=== PATIENT | female | born 1975 | race Caucasian/White ===

== ENCOUNTER 2017-09-04 14:19 | Emergency (ER) | payer BC ==
[~2017-09-04] VITALS: Ht 167.6 cm; Wt 86.0 kg
[~2017-09-04 14:19] MED LIST: ASPI81TA28 PO; LORA-741 PO
[2017-09-04 14:23] VITALS: TEMP 36.5; Ht 167.6 cm; Wt 86.0 kg
[2017-09-04] MEDS ORDERED: DiphenhydrAMINE HCL 50 MG/ML VIAL IV STA (15:44)
[2017-09-04] MEDS ORDERED: SODIUM CHLORIDE 0.9% 1000ML 1,000 ML IV STA (15:44)
[2017-09-04] MEDS ORDERED: KETOROLAC TROMETHAMINE 30 MG/ML VIAL IV STA (15:44)
[2017-09-04] MEDS ORDERED: PROCHLORPERAZINE 5 MG/ML 2 ML VIAL IV STA (15:44)
--- NOTE | 2017-09-04 15:57 | EMERGENCY ROOM VISIT NOTE ---
History Report prepared by Malcolm: Claudio Vallejo Under the Supervision of: Dr. Sabina Valentino D.O. First contact with patient: 15:35 Chief Complaint: HEADACHE Stated Complaint: 3 MIGRAINES IN A ROW History of Present Illness The patient is a 41 year old female who presents to the Emergency Room with complaints of a persistent migraine starting around 1030 this morning. The patient states that it started with an aura and then got a migraine, and she states that she took some ibuprofen which did not help. She then states that she got two more migraines on top of this original headache. She notes that she has been having tingling in her lips and her arm, and the light worsens the headache. She states that her headache is in the front of her head, and this is typical of her migraines. She states that she has a history of migraines, though she states that she usually only gets them once every six months, so this frequency is uncommon for her, and she has never had arm tingling before. She notes that she recently had a Mirena put in, though she has had it before with no problems. She denies any family history of migraines. She states that she has multiple triggers for her migraines including caffeine and seafood. Source of History: patient Onset: 1030 this morning Position: head Quality: ache Timing: other (persistent) Modifying Factors (Worsening): other (light) Note: Associated symptoms: Tingling in her lips and arm Review of Systems See HPI for pertinent positives & negatives. A total of 10 systems reviewed and were otherwise negative. Past Medical & Surgical Medical Problems: (1) Acute bronchitis (2) Anxiety (3) Anxiety (4) Migraine Social History Smoking Status: Never Smoker Alcohol Use: none Drug Use: none Housing Status: lives with family Occupation Status: employed Current/Historical Medications Scheduled Levonorgestrel (Iud) (Mirena), 20 MCG INT UTER UD Scheduled PRN Lorazepam (Lorazepam), 0.5 MG PO BID PRN for Anxiety Sumatriptan Succinate (Imitrex), 50 MG PO UD PRN for Migraine Allergies Coded Allergies: Sulfamethoxazole w/Trimethoprim (Verified Allergy, Intermediate, Flushing , 09/04/17) Latex1 -Allergic Contact Dermititis (Unverified Allergy, Mild, LATEX GLOVES MAKE SKIN BREAK OUT, 07/18/15) Albuterol (Verified Adverse Reaction, Intermediate, hyperventilate, 07/18/15 ) Iodine (Unverified Adverse Reaction, Unknown, MIGRANES, 09/04/17) Physical Exam Vital Signs Date Time Temp Pulse Resp B/P (MAP) Pulse Ox O2 Delivery O2 Flow Rate FiO2 09/04/17 17:10 82 18 108/84 98 09/04/17 16:02 67 105/58 100 Room Air 09/04/17 14:23 36.5 64 16 119/77 99 Physical Exam GENERAL: alert, well appearing, well nourished, no distress, non-toxic. Patient is in darkened room due to light sensitivity with migraine. EYE EXAM: normal conjunctiva, PERRL and EOM's grossly intact OROPHARYNX: no exudate, no erythema, lips, buccal mucosa, and tongue normal and mucous membranes are moist NECK: supple, no nuchal rigidity, no adenopathy, non-tender LUNGS: Clear to auscultation. Normal chest wall mechanics HEART: no murmurs, S1 normal and S2 normal ABDOMEN: abdomen soft, non-tender, normo-active bowel sounds, no masses, no rebound or guarding. BACK: Back is symmetrical on inspection and there is no deformity, no midline tenderness, no CVA tenderness. SKIN: no rashes and no bruising UPPER EXTREMITIES: upper extremities are grossly normal. LOWER EXTREMITIES: No pitting edema. NEURO EXAM: Normal sensorium, cranial nerves II-XII grossly intact, normal speech, no gross weakness of arms, no gross weakness of legs. Medical Decision & Procedures ER Provider Diagnostic Interpretation: Radiology results have been interpreted by the radiologist and reviewed by me. ANGIOGRAPHY HEAD COMBO HISTORY: Headache mental status change TECHNIQUE: Multiaxial CT images of the head were performed both before and after the intravenous administration of contrast to evaluate the major cerebral vessels. Maximum intensity projection images were also obtained. A dose lowering technique was utilized adhering to the principles of ALARA. COMPARISON: None. FINDINGS: There is no mass, hematoma, midline shift, or acute infarct. Visualized intracranial internal carotid arteries, distal vertebral arteries, and basilar artery are widely patent. There is no significant stenosis, occlusion, or aneurysm seen within the bilateral ACAs, MCAs, or farm assistant. Potential focal ectasia mid right middle cerebral artery transaxial image 114 is due to vascular tortuosity rather than aneurysm. IMPRESSION: No significant stenosis, occlusion, or aneurysm within the [place] of [place]. Negative CT of the brain. Note is made of moderate mucosal thickening of the ethmoid and maxillary sinuses. The above report was generated using voice recognition software. It may contain grammatical, syntax or spelling errors. Electronically signed by: Ebenezer Palm M.D. 09/04/2017 4:31 PM Dictated Date/Time: 09/04/2017 4:26 PM Laboratory Results Test 09/04/17 16:00 Bedside Hemoglobin 11.6 g/dl (12.0-16.0) Bedside Hematocrit 34 % (37-47) Bedside Sodium 140 mEq/L (135-144) Bedside Potassium 3.8 mEq/L (3.3-5.0) Bedside Chloride 102 mEq/L (101-112) Bedside Total CO2 24 mEq/l (24-31) Anion Gap 19.0 mmol/L (16-25) Bedside Blood Urea Nitrogen 5 mg/dl (7-18) Bedside Creatinine 0.6 mg/dl (0.6-1.3) Bedside Glucose (other) 102 mg/dl (70-99) Bedside Ionized Calcium (Juanita) 1.13 mmol/l (1.12-1.32) Laboratory results per my review. Medications Administered Medications (Trade) Dose Ordered Sig/Bradley Route Start Time Stop Time Status Last Admin Dose Admin Sodium Chloride 1,000 ml @ 999 mls/hr Q1H1M STAT IV 09/04/17 15:44 09/04/17 16:44 DC 09/04/17 15:58 999 MLS/HR Ketorolac Tromethamine (Toradol Inj) 30 mg NOW STAT IV 09/04/17 15:44 09/04/17 15:47 DC 09/04/17 15:58 30 MG Prochlorperazine Edisylate (Compazine Inj) 5 mg NOW STAT IV 09/04/17 15:44 09/04/17 15:47 DC 09/04/17 15:58 5 MG Diphenhydramine HCl (Benadryl Inj) 12.5 mg NOW STAT IV 09/04/17 15:44 09/04/17 15:47 DC 09/04/17 15:58 12.5 MG ED Course 1535: The patient was evaluated in room C1. A complete history and physical exam was performed. 1544: Benadryl 12.5mg IV, Compazine 5mg IV, Toradol 30mg IV, Sodium Chloride 1000 ml @ 999 mls/hr IV 1637: Upon reevaluation, the patient is feeling better, but the pain has not completely resolved. I discussed the findings and the treatment plan with the patient. She verbalizes agreement and understanding. She was discharged home. Medical Decision Differential diagnosis: Etiologies such as migraine headache, meningitis, sinusitis, CO exposure, ICH, SAH, infection, tumor, headache, sinus thrombosis, arterial dissection, as well as others were entertained. Pt with hx of migraines and atypical migraine frequency/duration/symptoms today. CT reassuring. Pt improved with standard migraine meds. Offered additional treatment, pt declined and wanted to be discharged. 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 Discussed with pt symptoms to watch/return for, she was tolerating po, ambulating with a steady gait and well appearing at DC. She verbalized understanding of all results and plan. Headache not the worse of her life and no symptoms to suggest infectious etiology, did not feel pt warranted LP at this time. Medication Reconcilliation Current Medication List: was personally reviewed by me Blood Pressure Screening Patient's blood pressure: Normal blood pressure Impression Primary Impression: Headache Additional Impression: Migraine Scribe Attestation The scribe's documentation has been prepared under my direction and personally reviewed by me in its entirety. I confirm that the note above accurately reflects all work, treatment, procedures, and medical decision making performed by me. Departure Information Dispostion Home / Self-Care Referrals Yuliya Guerra C.R.N.P. (PCP) Forms HOME CARE DOCUMENTATION FORM, IMPORTANT VISIT INFORMATION Patient Instructions [facility] Additional Instructions Please avoid any potential triggers for your headaches. Please make sure you' re drinking plenty of water. You may continue using [id number] medications to up with your headaches as required. If you continue to have more frequent or atypical migraines, please consider discussing this with your family doctor. If you have worsening headache, vision changes, dizziness, fevers, vomiting, increased numbness or tingling, or unable to walk, or you've any other new concerns, please return the emergency room. Problem Qualifiers Primary Impression: Headache Headache type: unspecified Headache chronicity pattern: acute headache Intractability: not intractable Qualified Codes: R51 - Headache Additional Impression: Migraine Migraine type: with aura Status migrainosus presence: without status migrainosus Intractability: not intractable Qualified Codes: G43.109 - Migraine with aura, not intractable, without status migrainosus
[2017-09-04] MEDS ORDERED: OPTIRAY 320 IV PRN (16:00)
[2017-09-04 16:11] LABS: ISTAT CREATININE 0.6 mg/dl (0.6-1.3); ISTAT IONIZED CALCIUM 1.13 mmol/l (1.12-1.32); ISTAT POTASSIUM 3.8 mEq/L (3.3-5.0)
--- NOTE | 2017-09-04 16:32 | DIAGNOSTIC IMAGING REPORT ---
ANGIOGRAPHY HEAD COMBO HISTORY: Headache mental status change TECHNIQUE: Multiaxial CT images of the head were performed both before and after the intravenous administration of contrast to evaluate the major cerebral vessels. Maximum intensity projection images were also obtained. A dose lowering technique was utilized adhering to the principles of ALARA. COMPARISON: None. FINDINGS: There is no mass, hematoma, midline shift, or acute infarct. Visualized intracranial internal carotid arteries, distal vertebral arteries, and basilar artery are widely patent. There is no significant stenosis, occlusion, or aneurysm seen within the bilateral ACAs, MCAs, or escalator constructor. Potential focal ectasia mid right middle cerebral artery transaxial image 114 is due to vascular tortuosity rather than aneurysm. IMPRESSION: No significant stenosis, occlusion, or aneurysm within the [place] of [place]. Negative CT of the brain. Note is made of moderate mucosal thickening of the ethmoid and maxillary sinuses. The above report was generated using voice recognition software. It may contain grammatical, syntax or spelling errors. Electronically signed by: Ebenezer Palm M.D. 09/04/2017 4:31 PM Dictated Date/Time: 09/04/2017 4:26 PM
[2017-09-04] MEDS ORDERED: ATV5X PO (16:39)
[2017-09-04] MEDS ORDERED: LEVO1IUD2 INT UTER (16:39)
[2017-09-04] MEDS ORDERED: SUMA50TA15 PO (16:46)
[2017-09-04 17:10] VITALS: BP 108/84; PULSE 82; O2SAT 98
== END 2017-09-04 17:12 | disposition home or self-care (01) ==
LOC: C.EDB 14:20 → C.EDC 17:12
DX: R51 Headache (principal); G43.109 Migraine with aura, not intractable, without status migrainosus; Z88.8 Allergy status to other drugs, medicaments and biological substances

== ENCOUNTER 2022-03-28 11:02 | Inpatient (IN) ==
[2022-03-28] MEDS ORDERED: HYDROmorphone INJ 1 MG/ML SYRINGE IV STA ×2 (12:39→18:54)
[2022-03-28] MEDS ORDERED: SODIUM CHLORIDE 0.9% 500 ML IV ONE (12:39)
[2022-03-28] MEDS ORDERED: ONDANSETRON INJ 2 MG/ML 2 ML VIAL IV STA ×2 (12:40→17:00)
--- NOTE | 2022-03-28 12:49 | Emergency Department Note ---
Impression & Plan Post surgical complication Admit to surgery ED Provider Note NAME: TEAGAN AGUILAR AGE: 46 SEX: F ARRIVES VIA: Ambulance INFORMANT: Patient ED PROVIDER(S): Avril Luciano DO CHIEF COMPLAINT: Right upper quadrant abdominal pain and vomiting PLAN: Disposition: Admit to surgery Condition: Guarded MEDICAL DECISION MAKING: This is a 46-year female patient who had a cholecystectomy [address] Cheatham. The patient now has severe right upper quadrant abdominal pain and vomiting. There is no obvious leukocytosis. The patient is afebrile but has severe right upper quadrant abdominal pain. CT scan of the abdomen/pelvis shows a 40 mm fluid collection in the right upper quadrant concerning for possible abscess formation. I also considered the possibility of a bile leak given that the patient was afebrile with no leukocytosis. I discussed the case with the [facility] surgery service and they will evaluate for further management. The patient required IV analgesia/IV antiemetics and was started on IV fluids and kept NPO. Triage Nursing notes reviewed and agree with them. Vital Signs: reviewed and unremarkable Differential diagnosis: Postsurgical wound infection Bowel leak Perforated viscus Bowel obstruction ER treatment provided: IV normal saline IV Zofran IV Dilaudid Diagnostics interpreted by me: ECG: Normal sinus rhythm at a rate of [address] segment ovation or signs of ischemia. There is no ectopy. Cardiac Monitoring: Normal sinus rhythm at 68 Laboratory studies: See below Imaging studies: As per radiology CT scan of the abdomen/pelvis: See Report HPI: 46/F arrives for evaluation of right upper quadrant abdominal pain. Patient underwent cholecystectomy [address] Cheatham at the surgical center for [facility]. She did not feel very well over the past 2 days but has suddenly developed severe right upper quadrant abdominal pain in the past couple of hours with significant nausea and vomiting. She denies fever or chills. ROS: See above HPI for pertinent positives & negatives. A total of 10 systems reviewed and were otherwise negative. PAST MEDICAL HISTORY:Anxiety; bronchitis PAST SURGICAL HISTORY:See Below FAMILY HISTORY:See Below SOCIAL HISTORY:See Below HOME MEDICATIONS:See list ALLERGIES:See list VITALS:See Below PHYSICAL EXAMINATION: HEENT: Head - normocephalic and atraumatic. Pupils are equal, round, and reactive to light. Extraocular eye muscles are intact, and sclera are anicteric. Nose - moist nasal mucosa without discharge. Mouth - moist buccal mucosa. Oropharynx is nonerythematous and there is no tonsillar exudate or edema noted. Neck: Supple; no cervical lymphadenopathy noted Heart: Regular rate and rhythm. There is a normal S1 and S2 with no murmurs, clicks, or gallops appreciated. Lungs: Clear to auscultation bilaterally with no wheezes, rales, or rhonchi. Abdomen: Soft, exquisitely tender to palpation in the right upper quadrant of the abdomen. Surgical incisions appear well-healing with Steri-Strips in Dermabond in place. Tthere are no palpable pulsatile masses or hepatosplenomegaly. There is no guarding, rigidity, or rebound noted. Extremities: No evidence of cyanosis, clubbing, or edema. There are easily palpable peripheral pulses. Skin: warm and dry with good turgor and no rashes. ED COURSE: Times/Reassessments: 1225: The patient was evaluated in room B 10. A complete history and physical was performed. A twelve-lead EKG was obtained as described above. An order was placed for continuous cardiac monitoring. The patient was in a normal sinus rhythm at a rate of 68. An IV lock was initiated and labs are drawn as above. The patient was medicated with IV Dilaudid and IV Zofran. She was started on a normal saline bolus. She will go for CT scan of the abdomen/pelvis. The patient was reevaluated and was more comfortable. I reviewed the results of the CT scan with the patient. I discussed the case with Heena Manuel PA-C. Avril Luciano DO Past Med/Surg History Medical History Acute bronchitis Anxiety Cholecystitis Headache Social History Smoking Status: Never smoker Preferred Language: Congolese Feels Safe at Home: Yes Allergies Allergies Allergy/AdvReac Type Severity Reaction Status Date / Time sulfamethoxazole [Bactrim] Allergy Intermediate Flushing Verified 03/19/22 20:56 trimethoprim [Bactrim] Allergy Intermediate Flushing Verified 03/19/22 20:56 latex Allergy Mild LATEX Verified 03/19/22 20:56 GLOVES MAKE SKIN BREAK OUT albuterol AdvReac Intermediate hyperventil Verified 03/19/22 20:56 ate iodine AdvReac Intermediate MIGRANES Verified 03/19/22 20:56 Home Meds Home Medications Medication Instructions Recorded Confirmed sertraline 100 mg tablet 100 mg PO HS 02/13/21 03/19/22 calcium carbonate 600 mg-vitamin 1 tab PO HS 03/19/22 03/19/22 D3 10 mcg (400 unit) tablet (Calcium 600 + D(3)) clobetasol 0.05 % topical ointment 1 applic topical DIRECTED PRN 03/19/22 03/19/22 FLARE UPS ferrous sulfate 325 mg (65 mg 325 mg PO HS 03/19/22 03/19/22 iron) tablet (iron) fluticasone 250 mcg-salmeterol 50 1 inh inhalation DIRECTED PRN 03/19/22 03/19/22 mcg/dose blistr powdr for Wheezing inhalation Previous Rx's Medication Instructions Recorded ondansetron HCl 4 mg tablet 4 mg PO Q8H PRN nausea and 03/19/22 vomiting #15 tabs oxycodone 5 mg tablet 5 mg PO Q6H PRN pain #15 tabs 03/19/22 Results & Data (ED) Vital Signs Vital Signs - 24 hr 03/28/22 11:16 03/28/22 11:30 03/28/22 12:00 Temperature 36.6 C Temperature Source Oral Pulse Rate 69 64 68 Pulse Rate [Right Finger] Pulse Rate from SpO2 Sensor 65 68 Pulse Rhythm Regular Pulse Rhythm [Right Finger] Pulse Strength Normal Pulse Strength [Right Finger] Respiratory Rate 16 Respiratory Effort / Characteristics Non-Labored Spontaneous Respiratory Depth Normal Respiratory Pattern Blood Pressure 129/55 L Blood Pressure [Right Arm] Blood Pressure Mean 79 Blood Pressure Mean [Right Arm] Pulse Oximetry 94 95 94 Oxygen Delivery Method Room Air Sepsis Recent Fever Within 48 Hours No Sepsis New/Unexplained Change in Mental Status No Sepsis Action Taken by Nursing No Action Required 03/28/22 12:43 03/28/22 14:00 03/28/22 15:00 Temperature Temperature Source Pulse Rate 65 Pulse Rate [Right Finger] Pulse Rate from SpO2 Sensor 64 68 63 Pulse Rhythm Pulse Rhythm [Right Finger] Pulse Strength Pulse Strength [Right Finger] Respiratory Rate 22 Respiratory Effort / Characteristics Respiratory Depth Respiratory Pattern Blood Pressure 140/81 111/75 119/74 Blood Pressure [Right Arm] Blood Pressure Mean 100 87 89 Blood Pressure Mean [Right Arm] Pulse Oximetry 95 95 95 Oxygen Delivery Method Sepsis Recent Fever Within 48 Hours Sepsis New/Unexplained Change in Mental Status Sepsis Action Taken by Nursing 03/28/22 15:30 03/28/22 17:00 03/28/22 18:26 Temperature Temperature Source Pulse Rate Pulse Rate [Right Finger] 65 Pulse Rate from SpO2 Sensor 64 61 Pulse Rhythm Pulse Rhythm [Right Finger] Regular Pulse Strength Pulse Strength [Right Finger] Normal Respiratory Rate 16 Respiratory Effort / Characteristics Non-Labored Spontaneous Respiratory Depth Normal Respiratory Pattern Regular Blood Pressure 135/77 126/75 Blood Pressure [Right Arm] 135/65 Blood Pressure Mean 96 92 Blood Pressure Mean [Right Arm] 88 Pulse Oximetry 95 96 94 Oxygen Delivery Method Room Air Sepsis Recent Fever Within 48 Hours Sepsis New/Unexplained Change in Mental Status Sepsis Action Taken by Nursing 03/28/22 18:26 03/28/22 18:30 03/28/22 19:30 Temperature Temperature Source Pulse Rate 66 Pulse Rate [Right Finger] Pulse Rate from SpO2 Sensor 64 67 Pulse Rhythm Regular Pulse Rhythm [Right Finger] Pulse Strength Pulse Strength [Right Finger] Respiratory Rate 16 Respiratory Effort / Characteristics Respiratory Depth Respiratory Pattern Blood Pressure 138/72 117/77 Blood Pressure [Right Arm] Blood Pressure Mean 94 90 Blood Pressure Mean [Right Arm] Pulse Oximetry 94 95 93 Oxygen Delivery Method Room Air Room Air Sepsis Recent Fever Within 48 Hours Sepsis New/Unexplained Change in Mental Status Sepsis Action Taken by Nursing 03/28/22 20:00 03/28/22 20:31 Temperature Temperature Source Pulse Rate 68 Pulse Rate [Right Finger] Pulse Rate from SpO2 Sensor 74 67 Pulse Rhythm Pulse Rhythm [Right Finger] Pulse Strength Pulse Strength [Right Finger] Respiratory Rate 20 Respiratory Effort / Characteristics Respiratory Depth Respiratory Pattern Blood Pressure 123/84 123/84 Blood Pressure [Right Arm] Blood Pressure Mean 97 97 Blood Pressure Mean [Right Arm] Pulse Oximetry 94 94 Oxygen Delivery Method Room Air Room Air Sepsis Recent Fever Within 48 Hours Sepsis New/Unexplained Change in Mental Status Sepsis Action Taken by Nursing Laboratory Data Result diagrams: 03/28/22 11:20 03/28/22 11:20 Lab Results 03/28/22 03/28/22 03/28/22 Range/Units 11:20 11:20 15:29 WBC 4.34 L (4.8-10.8) K/ul RBC 4.51 (3.93-5.22) M/uL Hgb 13.9 (12.0-16.0) g/dl Hct 40.8 (34.1-44.9) % MCV 90.5 (80.0-100.0) fL MCH 30.8 (25.0-34.0) pg MCHC 34.1 (32.0-36.0) g/dL RDW Std Deviation 41.1 (36.4-46.3) fL RDW Coeff of Moira 12.4 (11.5-14.5) % Plt Count 277 (130-400) K/uL MPV 10.4 (9.4-12.3) fL Immature Gran % (Auto) 0.5 % Neut % (Auto) 68.1 % Lymph % (Auto) 16.6 % Lyman % (Auto) 10.6 % Eos % (Auto) 3.5 % Baso % (Auto) 0.7 % Neut # (Auto) 2.96 (1.4-6.5) K/uL Lymph # (Auto) 0.72 L (1.2-3.4) K/uL Lyman # (Auto) 0.46 (0.24-0.82) K/uL Eos # (Auto) 0.15 (0-0.50) K/uL Baso # (Auto) 0.03 (0-0.2) K/uL Immature Gran # (Auto) 0.02 (0.00-0.02) K/uL Sodium 137 (136-145) mmol/L Potassium 3.6 (3.5-5.1) mmol/L Chloride 104 (98-107) mmol/L Carbon Dioxide 26 (21-32) mmol/L Anion Gap 7 (3-11) BUN 6 (6-23) mg/dl Creatinine 0.47 L (0.6-1.2) mg/dl Est Cr Clr Drug Dosing 172.1 ml/min Est GFR ( Amer) 137.3 ml/min Est GFR (Non-Af Amer) 118.5 ml/min BUN/Creatinine Ratio 12.8 (10-20) Glucose 105 H (70-99(Fasting)) mg/dl Calcium 8.6 (8.5-10.1) mg/dl Total Bilirubin 2.7 H (0.2-1.0) mg/dl AST 382 H (13-39) U/L ALT 631 H (7-52) U/L Alkaline Phosphatase 325 H (34-104) U/L Total Protein 6.4 (6.0-8.3) gm/dl Albumin 3.8 (3.4-5.0) gm/dl Globulin 2.6 (2.5-4.0) gm/dl Albumin/Globulin Ratio 1.5 (0.9-2) Lipase 16 (11-82) U/L Urine Color Dark Yellow Urine Appearance Clear (Clear) Urine pH 5.5 (4.5-7.5) Ur Specific [place] > 1.060 H (1.000-1.030) Urine Protein Trace H (Negative) Urine Glucose (UA) Negative (Negative) Urine Ketones 2+ H (Negative) Urine Blood Trace H (Negative) Urine Nitrite Negative (Negative) Urine Bilirubin 1+ H (Negative) Urine Urobilinogen Positive H (Negative) Ur Leukocyte Esterase Negative (Negative) Urine WBC (Auto) 1-5 (0-5) /hpf Urine RBC (Auto) 0-4 (0-4) /hpf U Hyaline Cast (Auto) 10-30 H (0-5) /lpf U Epithel Cells (Auto) >30 H (0-5) /lpf Urine Bacteria (Auto) Negative (Negative) SARS-CoV-2, RNA, NAAT (NEGATIVE) 03/28/22 Range/Units 18:33 WBC (4.8-10.8) K/ul RBC (3.93-5.22) M/uL Hgb (12.0-16.0) g/dl Hct (34.1-44.9) % MCV (80.0-100.0) fL MCH (25.0-34.0) pg MCHC (32.0-36.0) g/dL RDW Std Deviation (36.4-46.3) fL RDW Coeff of Moira (11.5-14.5) % Plt Count (130-400) K/uL MPV (9.4-12.3) fL Immature Gran % (Auto) % Neut % (Auto) % Lymph % (Auto) % Lyman % (Auto) % Eos % (Auto) % Baso % (Auto) % Neut # (Auto) (1.4-6.5) K/uL Lymph # (Auto) (1.2-3.4) K/uL Lyman # (Auto) (0.24-0.82) K/uL Eos # (Auto) (0-0.50) K/uL Baso # (Auto) (0-0.2) K/uL Immature Gran # (Auto) (0.00-0.02) K/uL Sodium (136-145) mmol/L Potassium (3.5-5.1) mmol/L Chloride (98-107) mmol/L Carbon Dioxide (21-32) mmol/L Anion Gap (3-11) BUN (6-23) mg/dl Creatinine (0.6-1.2) mg/dl Est Cr Clr Drug Dosing ml/min Est GFR ( Amer) ml/min Est GFR (Non-Af Amer) ml/min BUN/Creatinine Ratio (10-20) Glucose (70-99(Fasting)) mg/dl Calcium (8.5-10.1) mg/dl Total Bilirubin (0.2-1.0) mg/dl AST (13-39) U/L ALT (7-52) U/L Alkaline Phosphatase (34-104) U/L Total Protein (6.0-8.3) gm/dl Albumin (3.4-5.0) gm/dl Globulin (2.5-4.0) gm/dl Albumin/Globulin Ratio (0.9-2) Lipase (11-82) U/L Urine Color Urine Appearance (Clear) Urine pH (4.5-7.5) Ur Specific [place] (1.000-1.030) Urine Protein (Negative) Urine Glucose (UA) (Negative) Urine Ketones (Negative) Urine Blood (Negative) Urine Nitrite (Negative) Urine Bilirubin (Negative) Urine Urobilinogen (Negative) Ur Leukocyte Esterase (Negative) Urine WBC (Auto) (0-5) /hpf Urine RBC (Auto) (0-4) /hpf U Hyaline Cast (Auto) (0-5) /lpf U Epithel Cells (Auto) (0-5) /lpf Urine Bacteria (Auto) (Negative) SARS-CoV-2, RNA, NAAT NEGATIVE (NEGATIVE) Administered Medications Sodium Chloride (Nss) 500 mls @ 125 mls/hr IV .Q4H ANASTASIA Stop: 04/27/22 15:59 Last Admin: 03/28/22 20:29 Dose: 125 mls/hr Documented By: HUBERT Discontinued Medications Hydromorphone HCl (Hydromorphone Inj 1 Mg/Ml Syringe) 1 mg IV NOW STA Stop: 03/28/22 12:40 Last Admin: 03/28/22 12:44 Dose: 1 mg Documented By: SMITHA Hydromorphone HCl (Hydromorphone Inj 1 Mg/Ml Syringe) 1 mg IV NOW STA Stop: 03/28/22 18:55 Last Admin: 03/28/22 18:57 Dose: 1 mg Documented By: SMITHA Sodium Chloride (Nss) 500 mls @ 999 mls/hr IV .Q31M ONE Stop: 03/28/22 13:09 Last Infusion: 03/28/22 13:44 Dose: 0 mls/hr Documented By: Admin: 03/28/22 12:45 Dose: 999 mls/hr Documented By: SMITHA Ioversol (Optiray 300 100ml) 94 ml IV ONCE ONE Stop: 03/28/22 13:38 Last Admin: 03/28/22 13:37 Dose: 94 ml Documented By: ANNA Ondansetron HCl (Ondansetron Inj 2 Mg/Ml 2 Ml Vial) 4 mg IV NOW STA Stop: 03/28/22 12:41 Last Admin: 03/28/22 12:44 Dose: 4 mg Documented By: SMITHA Ondansetron HCl (Ondansetron Inj 2 Mg/Ml 2 Ml Vial) 4 mg IV NOW STA Stop: 03/28/22 17:01 Last Admin: 03/28/22 17:15 Dose: 4 mg Documented By: SMITHA Imaging Data Radiologist's Impression: Abdomen/Pelvis CT 03/28/22 12:37 CT abd pelvis IV con only CLINICAL HISTORY: s/p choley; severe pain TECHNIQUE: Helical axial images of the abdomen and pelvis were obtained and displayed. Automated dose lowering techniques and/or adjustment according to patient size were utilized for this exam. This exam was performed with intravenous contrast. CT DOSE: 629.20 mGy.cm COMPARISON: Comparison is made to CT abdomen pelvis 11/24/2010 and gallbladder ultrasound 03/19/2022 FINDINGS: Lower chest: Bibasilar atelectasis versus scarring is seen. Liver: Unremarkable. No focal lesions are seen. Gallbladder and biliary tree: Patient is status post cholecystectomy. Physiologic prominence of the biliary ducts is noted. Pancreas: Unremarkable, no focal lesions. Spleen: Unremarkable. Adrenals: Unremarkable. Kidneys and ureters: Unremarkable. Bladder: Unremarkable. Reproductive organs: Unremarkable. Bowel: Unremarkable appearance of the bowel. The appendix is normal. There is mild fat stranding about the hepatic flexure. Lymph nodes Retroperitoneal: Unremarkable. Pelvic: Unremarkable. Mesenteric: Unremarkable. Peritoneum: There is a gas and fluid collection in the right upper quadrant measuring approximately 40 mm in diameter. Surrounding soft tissue stranding is seen. No eric pneumoperitoneum is seen. Vessels: Unremarkable. Abdominal wall: Unremarkable. Bones: Degenerative changes in the visualized spine. IMPRESSION: 1. There is a gas and fluid collection in the right upper quadrant with associated soft tissue stranding. Findings are concerning for developing abscess in this patient status post recent cholecystectomy. Fat stranding of the hepatic flexure likely reflects reactive changes. 2. Additional findings as above. ACT 112: Negative or not required by law. Electronically signed by: Josue Peñaloza M.D. 03/28/2022 2:17 PM Cholangiopancreatography MRI 03/28/22 16:30 MR MRCP CLINICAL HISTORY: RUQ pain, S/P lap ned TECHNIQUE: Multiplanar multisequence MR images of the abdomen were obtained, as per MRCP protocol. . COMPARISON: Comparison is made to CT abdomen pelvis 03/28/2022 FINDINGS: Lower chest: No acute abnormality Liver: Unremarkable. No focal lesions are seen. Gallbladder and biliary tree: Patient is status post cholecystectomy. There is prominent susceptibility artifact in the gallbladder fossa. Please see CT abdomen pelvis performed same day for findings of gas/fluid collection. The common bile duct measures 10 mm in diameter. Mild prominence of the intrahepatic bile ducts is seen. Pancreas: Unremarkable were visualized. Spleen: Tiny T2 hyperintensities may represent hemangioma. Adrenals: Unremarkable. Kidneys and ureters: Unremarkable. Bowel: Unremarkable. Lymph nodes Retroperitoneal: Unremarkable. Mesenteric: Unremarkable. Peritoneum: Normal Vessels: Unremarkable. Abdominal wall: Unremarkable. Bones: Unremarkable. IMPRESSION: Status post cholecystectomy. The common bile duct is prominent measuring 10 mm, this may be physiologic or reactive to surrounding inflammation. No choledocholithiasis is seen. Please see CT abdomen pelvis performed same day for findings of gas and fluid at the postsurgical site. ACT 112: Negative or not required by law. Electronically signed by: Josue Peñaloza M.D. 03/28/2022 6:26 PM Discharge Plan Visit Data Chief Complaint: Abdominal Pain Stated Complaint: AB PAIN ED Provider: Avril Luciano Discharge Problem: Post surgical complication Forms Stand Alone Forms: [facility] [place] [employer] Prescriptions Prescriptions: No Action fluticasone propion-salmeterol 250-50 mcg/dose blister with device 1 inh INHALATION DIRECTED PRN (Reason: Wheezing) ferrous sulfate [iron] 325 mg (65 mg iron) Tablet 325 mg PO HS clobetasol 0.05 % Ointment 1 applic TOPICAL DIRECTED PRN (Reason: FLARE UPS) calcium carbonate-vitamin D3 [Calcium 600 + D(3)] 600 mg-10 mcg (400 unit) Tablet 1 tab PO HS ondansetron HCl 4 mg tablet 4 mg PO Q8H PRN (Reason: nausea and vomiting) Qty: 15 0RF oxycodone 5 mg tablet 5 mg PO Q6H PRN (Reason: pain) Qty: 15 0RF sertraline 100 mg tablet 100 mg PO HS Referrals Referrals: Layne Le MD [Primary Care Provider] - : Post surgical complication Qualifiers: Surgical complication system/body Area: digestive system Surgical complication type: unspecified
[2022-03-28 12:54] LABS: Basophils # (auto) 0.03 K/uL (0-0.2); Basophils % (auto) 0.7 %; Eosinophils # (auto) 0.15 K/uL (0-0.50); Eosinophils % (auto) 3.5 %; Hematocrit (blood only) 40.8 % (34.1-44.9); Hemoglobin 13.9 g/dl (12.0-16.0); Immature Granulocytes # (auto) 0.02 K/uL (0.00-0.02); Immature Granulocytes % (auto) 0.5 %; Lymphocytes # (auto) 0.72 K/uL (1.2-3.4); Lymphocytes % (auto) 16.6 %; Mean Corpuscular Hemoglobin 30.8 pg (25.0-34.0); Mean Corpuscular Hgb Conc 34.1 g/dL (32.0-36.0); Mean Corpuscular Volume 90.5 fL (80.0-100.0); Mean Platelet Volume 10.4 fL (9.4-12.3); Monocytes # (auto) 0.46 K/uL (0.24-0.82); Monocytes % (auto) 10.6 %; Neutrophils # (auto) 2.96 K/uL (1.4-6.5); Neutrophils % (auto) 68.1 %; Platelet Count 277 K/uL (130-400); RDW Coefficient of Variation 12.4 % (11.5-14.5); RDW Standard Deviation 41.1 fL (36.4-46.3); Red Blood Count 4.51 M/uL (3.93-5.22); White Blood Count 4.34 K/ul (4.8-10.8)
[2022-03-28 13:02] LABS: BUN Creatinine Ratio 12.8 (10-20); Calcium 8.6 mg/dl (8.5-10.1); Creatinine Clr Calc Pharmacy 172.1 ml/min; Est GFR (African American) 137.3 ml/min; Est GFR (Non-African American) 118.5 ml/min; Potassium 3.6 mmol/L (3.5-5.1)
[2022-03-28 13:17] LABS: Albumin Globulin Ratio 1.5 (0.9-2); Albumin Level 3.8 gm/dl (3.4-5.0); Bilirubin,Total 2.7 mg/dl (0.2-1.0); Globulin 2.6 gm/dl (2.5-4.0); Total Protein 6.4 gm/dl (6.0-8.3)
[2022-03-28] MEDS ORDERED: OPTIRAY 300 100mL IV ONE (13:37)
--- NOTE | 2022-03-28 14:20 | CT Scan Report ---
CT abd pelvis IV con only CLINICAL HISTORY: s/p choley; severe pain TECHNIQUE: Helical axial images of the abdomen and pelvis were obtained and displayed. Automated dose lowering techniques and/or adjustment according to patient size were utilized for this exam. This e xam was performed with intravenous contrast. CT DOSE: 629.20 mGy.cm COMPARISON: Comparison is made to CT abdomen pelvis 11/24/2010 and gallbladder ultrasound 03/19/2022 FINDINGS: Lower chest: Bibasilar atelectasis versus scarring is seen. Liver: Unremarkable. No focal lesions are seen. Gallbladder and biliary tree: Patient is status post cholecystectomy. Physiologic prominence of the b iliary ducts is noted. Pancreas: Unremarkable, no focal lesions. Spleen: Unremarkable. Adrenals: Unremarkable. Kidneys and ureters: Unremarkable. Bladder: Unremarkable. Reproductive organs: Unremarkable. Bowel: Unremarkable appearance of the bowel. The appendix is normal. There is mild fat stranding abou t the hepatic flexure. Lymph nodes Retroperitoneal: Unremarkable. Pelvic: Unremarkable. Mesenteric: Unremarkable. Peritoneum: There is a gas and fluid collection in the right upper quadrant measuring approximately 4 0 mm in diameter. Surrounding soft tissue stranding is seen. No eric pneumoperitoneum is seen. Vessels: Unremarkable. Abdominal wall: Unremarkable. Bones: Degenerative changes in the visualized spine. IMPRESSION: 1. There is a gas and fluid collection in the right upper quadrant with associated soft tissue stran ding. Findings are concerning for developing abscess in this patient status post recent cholecystecto my. Fat stranding of the hepatic flexure likely reflects reactive changes. 2. Additional findings as above. ACT 112: Negative or not required by law. Electronically signed by: Josue Peñaloza M.D. 03/28/2022 2:17 PM
[2022-03-28 15:44] LABS: Appearance Urine Clear (Clear); Bacteria Urine Automated Negative (Negative); Blood Urine Trace (Negative); Color Urine Dark Yellow; Epithelial Cell Urine Auto >30 /lpf (0-5); Glucose Urine UA Negative (Negative); Ketones Urine 2+ (Negative); Leukocyte Esterase Urine Negative (Negative); Nitrite Urine Negative (Negative); Protein Urine Trace (Negative); RBC Urine Automated 0-4 /hpf (0-4); Urobilinogen Urine Positive (Negative); pH Urine 5.5 (4.5-7.5)
[2022-03-28 15:53] LABS: Bilirubin Urine 1+ (Negative)
[2022-03-28 15:54] LABS: Specific Gravity Urine > 1.060 (1.000-1.030)
--- NOTE | 2022-03-28 16:15 | Surgery Consultation ---
Date of Consultation March 28, 2022 Assessment & Plan (1) Right upper quadrant abdominal pain: pt is a 46 year-old female who presents to ER with 3 days history RUQ pain with nausea and vomiting, pt had laparoscopic cholecystectomy 3 days ago, at [facility], IMP: post-op abdominal pain, CBD stone?, CBD injury? I recommend to admit pt to hospital, NPO, IV fluid, control pain, MRCP, consult GI for ERCP, repeat labs in morning, pt agrees with the plan, I answered all questions, noticed DR. Cheatham History of Present Illness Reason for Consultation: abdominal pain Requesting Physician: River Garcia DO History of Present Illness HPI: 46/F arrives for evaluation of []right upper quadrant abdominal pain. Patient underwent cholecystectomy [address] Cheatham at the surgical center for [facility]. She did not feel very well over the past 2 days but has suddenly developed severe right upper quadrant abdominal pain in the past couple of hours with significant nausea and vomiting. She denies fever or chills. I ( Geraldo Lam MD ) got a call for consult abdominal pain, I reviewed pt's H/P, labs, CT scan with pt, ROS: See above HPI for pertinent positives & negatives. A total of [10] systems reviewed and were otherwise negative. Past Med/Surg History Medical History Acute bronchitis Anxiety Cholecystitis Headache Social History Smoking Status: Never smoker Preferred Language: Kyrgyz Feels Safe at Home: Yes Allergies Allergies Allergy/AdvReac Type Severity Reaction Status Date / Time sulfamethoxazole [Bactrim] Allergy Intermediate Flushing Verified 03/19/22 20:56 trimethoprim [Bactrim] Allergy Intermediate Flushing Verified 03/19/22 20:56 latex Allergy Mild LATEXB Verified 03/19/22 20:56 GLOVES MAKE SKIN BREAK OUT albuterol AdvReac Intermediate hyperventil Verified 03/19/22 20:56 ate iodine AdvReac Intermediate MIGRANES Verified 03/19/22 20:56 Home Meds Home Medications Medication Instructions Recorded Confirmed E sertraline 100 mg tablet 100 mg PO HS 02/13/21 03/19/22 calcium carbonate 600 mg-vitamin 1 tab PO HS 03/19/22 2 D3 10 mcg (400 unit) tablet (Calcium 600 + D(3)) clobetasol 0.05 % topical ointment 1 applic topical DIRECTED PRN 03/19/22 03/19/22 FLARE UPS ferrous sulfate 325 mg (65 mg 325 mg PO HS 03/19/22 03/19/22 iron) tablet (iron) fluticasone 250 mcg-salmeterol 50 1 inh inhalation DIRECTED PRN 03/19/22 03/19/22 mcg/dose blistr powdr for Wheezing inhalation Previous Rx's Medication Instructions Recorded ondansetron HCl 4 mg tablet 4 mg PO Q8H PRN nausea and 03/19/22 vomiting #15 tabs oxycodone 5 mg tablet 5 mg PO Q6H PRN pain #15 tabs 03/19/22 Allergies Allergy/AdvReac Type Severity Reaction Status Date / Time sulfamethoxazole [Bactrim] Allergy Intermediate Flushing Verified 03/19/22 20:56 trimethoprim [Bactrim] Allergy Intermediate Flushing Verified 03/19/22 20:56 latex Allergy Mild LATEX Verified 03/19/22 20:56 GLOVES MAKE SKIN BREAK OUT albuterol AdvReac Intermediate hyperventil Verified 03/19/22 20:56 ate iodine AdvReac Intermediate MIGRANES Verified 03/19/22 20:56 Home Medications Medication Instructions Recorded Confirmed Type sertraline 100 mg tablet 100 mg PO HS 02/13/21 03/19/22 History calcium carbonate 600 mg-vitamin 1 tab PO HS 03/19/22 03/19/22 History D3 10 mcg (400 unit) tablet (Calcium 600 + D(3)) clobetasol 0.05 % topical ointment 1 applic topical DIRECTED PRN 03/19/22 03/19/22 History FLARE UPS ferrous sulfate 325 mg (65 mg 325 mg PO HS 03/19/22 03/19/22 History iron) tablet (iron) fluticasone 250 mcg-salmeterol 50 1 inh inhalation DIRECTED PRN 03/19/22 03/19/22 History mcg/dose blistr powdr for Wheezing inhalation ondansetron HCl 4 mg tablet 4 mg PO Q8H PRN nausea and 03/19/22 Rx vomiting #15 tabs oxycodone 5 mg tablet 5 mg PO Q6H PRN pain #15 tabs 03/19/22 Rx Patient History Medical History Acute bronchitis Anxiety Cholecystitis Headache Social History Smoking Status: Never smoker Preferred Language: Kyrgyz Feels Safe at Home: Yes Physical Exam Constitutional: WD/WN, vitals as above no distress, Eyes: PERRL, conjunctivae normal, anicteric sclerae Neck: trachea midline, no thyromegaly Respiratory: normal respiratory effort, lungs clear to auscultation Cardiovascular: RRR, no murmur, no edema Gastrointestinal (Abdomen): soft, mild tenderness at RUQ, no rebound pain, no distend, all incisions heal well, no drainage for incision site, lower abdominal incision scar, Musculoskeletal: no cyanosis or clubbing, extremities motor strength 5/5 Neurologic: patellar DTR's 2+ bilat, sensation intact Psychiatric: A+Ox3, euthymic affect Results & Data ([facility]) Vital Signs (Past 12 Hours) Vital Signs Temp Pulse Resp BP Pulse Ox O2 Del Method 03/28/22 12:43 65 22 140/81 95 03/28/22 12:00 68 94 03/28/22 11:30 64 95 03/28/22 11:16 36.6 C 69 16 129/55 L 94 Room Air Laboratory Results Abnormal lab results 03/28/22 03/28/22 03/28/22 Range/Units 11:20 11:20 15:29 WBC 4.34 L (4.8-10.8) K/ul Lymph # (Auto) 0.72 L (1.2-3.4) K/uL Creatinine 0.47 L (0.6-1.2) mg/dl Glucose 105 H (70-99(Fasting)) mg/dl Total Bilirubin 2.7 H (0.2-1.0) mg/dl AST 382 H (13-39) U/L ALT 631 H (7-52) U/L Alkaline Phosphatase 325 H (34-104) U/L Ur Specific [place] > 1.060 H (1.000-1.030) Urine Protein Trace H (Negative) Urine Ketones 2+ H (Negative) Urine Blood Trace H (Negative) Urine Bilirubin 1+ H (Negative) Urine Urobilinogen Positive H (Negative) U Hyaline Cast (Auto) 10-30 H (0-5) /lpf U Epithel Cells (Auto) >30 H (0-5) /lpf Diagnostic Findings CT abd pelvis IV con only CLINICAL HISTORY: s/p choley; severe pain TECHNIQUE: Helical axial images of the abdomen and pelvis were obtained and displayed. Automated dose lowering techniques and/or adjustment according to patient size were utilized for this exam. This exam was performed with intravenous contrast. CT DOSE: 629.20 mGy.cm COMPARISON: Comparison is made to CT abdomen pelvis 11/24/2010 and gallbladder ultrasound 03/19/2022 FINDINGS: Lower chest: Bibasilar atelectasis versus scarring is seen. Liver: Unremarkable. No focal lesions are seen. Gallbladder and biliary tree: Patient is status post cholecystectomy. Physiologic prominence of the biliary ducts is noted. Pancreas: Unremarkable, no focal lesions. Spleen: Unremarkable. Adrenals: Unremarkable. Kidneys and ureters: Unremarkable. Bladder: Unremarkable. Reproductive organs: Unremarkable. Bowel: Unremarkable appearance of the bowel. The appendix is normal. There is mild fat stranding about the hepatic flexure. Lymph nodes Retroperitoneal: Unremarkable. Pelvic: Unremarkable. Mesenteric: Unremarkable. Peritoneum: There is a gas and fluid collection in the right upper quadrant measuring approximately 40 mm in diameter. Surrounding soft tissue stranding is seen. No eric pneumoperitoneum is seen. Vessels: Unremarkable. Abdominal wall: Unremarkable. Bones: Degenerative changes in the visualized spine. IMPRESSION: 1. There is a gas and fluid collection in the right upper quadrant with associated soft tissue stranding. Findings are concerning for developing abscess in this patient status post recent cholecystectomy. Fat stranding of the hepatic flexure likely reflects reactive changes. 2. Additional findings as above. ACT 112: Negative or not required by law.
--- NOTE | 2022-03-28 16:29 | Electrocardiogram Report ---
Test Reason : Blood Pressure : / mmHG Vent. Rate : 063 BPM Atrial Rate : 063 BPM P-R Int : 166 ms QRS Dur : 082 ms QT Int : 448 ms P-R-T Axes : 041 024 035 degrees QTc Int : 458 ms Normal sinus rhythm Normal ECG When compared with ECG of 19-MAR-2022 20:27, No significant change was found Confirmed by River Jimenez ([id number]) on 03/28/2022 4:28:47 PM Referred By: REFERRED SELF Confirmed By:River Jimenez
[2022-03-28] MEDS ORDERED: ONDANSETRON INJ 2 MG/ML 2 ML VIAL IV PRN (16:33)
--- NOTE | 2022-03-28 18:27 | Magnetic Resonance Report ---
MR MRCP CLINICAL HISTORY: RUQ pain, S/P lap ned TECHNIQUE: Multiplanar multisequence MR images of the abdomen were obtained, as per MRCP protocol. . COMPARISON: Comparison is made to CT abdomen pelvis 03/28/2022 FINDINGS: Lower chest: No acute abnormality Liver: Unremarkable. No focal lesions are seen. Gallbladder and biliary tree: Patient is status post cholecystectomy. There is prominent susceptibili ty artifact in the gallbladder fossa. Please see CT abdomen pelvis performed same day for findings of gas/fluid collection. The common bile duct measures 10 mm in diameter. Mild prominence of the intrah epatic bile ducts is seen. Pancreas: Unremarkable were visualized. Spleen: Tiny T2 hyperintensities may represent hemangioma. Adrenals: Unremarkable. Kidneys and ureters: Unremarkable. Bowel: Unremarkable. Lymph nodes Retroperitoneal: Unremarkable. Mesenteric: Unremarkable. Peritoneum: Normal Vessels: Unremarkable. Abdominal wall: Unremarkable. Bones: Unremarkable. IMPRESSION: Status post cholecystectomy. The common bile duct is prominent measuring 10 mm, this may be physiolog ic or reactive to surrounding inflammation. No choledocholithiasis is seen. Please see CT abdomen pel vis performed same day for findings of gas and fluid at the postsurgical site. ACT 112: Negative or not required by law. Electronically signed by: Josue Peñaloza M.D. 03/28/2022 6:26 PM
[2022-03-28] MEDS: SODIUM CHLORIDE 0.9% 500 ML IV SCH ×2 (20:29→21:49)
[2022-03-28] MEDS ORDERED: oxyCODONE/ACETAMINOPHEN 5mg/325mg TAB PO PRN (21:07)
[2022-03-28] MEDS ORDERED: ONDANSETRON 4 MG OD TAB PO PRN (21:49)
[2022-03-28 21:58] LABS: Calcium 8.7 mg/dl (8.5-10.1); Creatinine Clr Calc Pharmacy 161.8 ml/min; Est GFR (African American) 134.5 ml/min; Est GFR (Non-African American) 116.1 ml/min; Potassium 3.4 mmol/L (3.5-5.1)
[2022-03-28] MEDS ORDERED: FLUTICASONE/VILANTEROL 200/25MCG 14 PUFFS/INHALER INH PRN (21:58)
[2022-03-28] MEDS ORDERED: PIPERACILLIN/TAZOBACTAM 3.375 GM in DEXTROSE 5% 100 ML IV ONE (22:00)
[2022-03-28] MEDS: SERTRALINE HCL 100 MG TABLET PO SCH (22:09)
[2022-03-28] MEDS: D5W AND 1/2NSS + 20MEQ KCL 20 MEQ/1,000 ML BAG IV SCH (22:09)
[2022-03-28] MEDS: CALCIUM 600MG + VIT D 400 IU TAB PO SCH (22:13)
[2022-03-28] MEDS: FERROUS SULFATE 325 MG TAB PO SCH (22:13)
[2022-03-28 22:20] LABS: Albumin Globulin Ratio 1.5 (0.9-2); Albumin Level 3.8 gm/dl (3.4-5.0); Bilirubin,Total 2.3 mg/dl (0.2-1.0); Globulin 2.6 gm/dl (2.5-4.0); Total Protein 6.4 gm/dl (6.0-8.3)
[2022-03-29] MEDS: HYDROmorphone INJ 1 MG/ML SYRINGE IV PRN ×2 (00:13→12:47)
[2022-03-29] MEDS: PIPERACILLIN/TAZOBACTAM 3.375 GM in DEXTROSE 5% 100 ML IV SCH ×3 (03:10→21:17)
[2022-03-29] MEDS: oxyCODONE HCL IR 5 MG TAB (IMMEDIATE RELEASE) PO PRN (04:50)
[2022-03-29 06:48] LABS: Basophils # (auto) 0.03 K/uL (0-0.2); Basophils % (auto) 0.6 %; Eosinophils # (auto) 0.17 K/uL (0-0.50); Eosinophils % (auto) 3.5 %; Hematocrit (blood only) 39.7 % (34.1-44.9); Hemoglobin 13.3 g/dl (12.0-16.0); Immature Granulocytes # (auto) 0.02 K/uL (0.00-0.02); Immature Granulocytes % (auto) 0.4 %; Lymphocytes # (auto) 0.87 K/uL (1.2-3.4); Lymphocytes % (auto) 17.8 %; Mean Corpuscular Hemoglobin 30.3 pg (25.0-34.0); Mean Corpuscular Hgb Conc 33.5 g/dL (32.0-36.0); Mean Corpuscular Volume 90.4 fL (80.0-100.0); Mean Platelet Volume 9.7 fL (9.4-12.3); Monocytes # (auto) 0.48 K/uL (0.24-0.82); Monocytes % (auto) 9.8 %; Neutrophils # (auto) 3.33 K/uL (1.4-6.5); Neutrophils % (auto) 67.9 %; Platelet Count 250 K/uL (130-400); RDW Coefficient of Variation 12.3 % (11.5-14.5); RDW Standard Deviation 40.9 fL (36.4-46.3); Red Blood Count 4.39 M/uL (3.93-5.22)
[2022-03-29 07:09] LABS: Calcium 8.2 mg/dl (8.5-10.1); Creatinine Clr Calc Pharmacy 161.8 ml/min; Est GFR (African American) 134.5 ml/min; Est GFR (Non-African American) 116.1 ml/min; Potassium 3.4 mmol/L (3.5-5.1)
[2022-03-29 07:10] LABS: Albumin Globulin Ratio 1.5 (0.9-2); Albumin Level 3.5 gm/dl (3.4-5.0); Bilirubin,Total 2.5 mg/dl (0.2-1.0); Globulin 2.4 gm/dl (2.5-4.0); Total Protein 5.9 gm/dl (6.0-8.3)
--- NOTE | 2022-03-29 08:45 | Gastrointestinal Consultation ---
Date of Consultation March 29, 2022 Assessment & Plan (1) Right upper quadrant abdominal pain: 46 year old female admitted with abd pain, nausea, vomiting, history of CCY four days ago, imaging showing gas and fluid collection in the right upper quadrant with associated soft tissue stranding, CBD dilation at 10 mm. She has significantly elevated LFTs w/ Tbili 2.5, AST 308, ALT 555, ALKP 321. Given imaging and LFT elevation, after discussing with on-call biliary staff will plan for ERCP evaluation today. DDX discussed to include biliary obstruction from stone, bile leak, abscess. NPO ERCP today Thank you for allowing us to participate in the care of this patient. Please ca ll with any acute changes, questions or concerns. Please see addendum below with additional recommendation from my supervising physician. Supervising Physician Co-Signing Physician Notes Attg add: Pt with increased LFT's post recent ned, likely retained stone. Imaging also suggestive of biloma or abscess. ERCP today. Management of fluid collection per surgery service. History of Present Illness Reason for Consultation: ERCP Requesting Physician: Genaro Attending Physician: Geraldo Lam MD History of Present Illness 46 year old female with history of HAYNES, cholecystitis s/p lap CCY 4 days ago admitted through the ED with intermittent abd pain, nausea and vomiting for 3 days. GI was asked to evaluate given abnormal imaging. Pt notes severe, intermittent right sided pain that radiates midline and to her back. There has been severe nausea as well as intermittent vomiting. Is passing gas. She is unsure when her last BM was. MRCP 2021: Status post cholecystectomy. The common bile duct is prominent measuring 10 mm, this may be physiologic or reactive to surrounding inflammation. No choledocholithiasis is seen. Please see CT abdomen pelvis performed same day for findings of gas and fluid at the postsurgical site. CTAP 2021: There is a gas and fluid collection in the right upper quadrant with associated soft tissue stranding. Findings are concerning for developing abscess in this patient status post recent cholecystectomy. Fat stranding of the hepatic flexure likely reflects reactive changes.. Additional findings as above. ABD US 2021: Cholelithiasis. No gallbladder wall thickening. Hepatic steatosis. Allergies Allergy/AdvReac Type Severity Reaction Status Date / Time sulfamethoxazole [Bactrim] Allergy Intermediate Flushing Verified 03/19/22 20:56 trimethoprim [Bactrim] Allergy Intermediate Flushing Verified 03/19/22 20:56 latex Allergy Mild LATEX Verified 03/19/22 20:56 GLOVES MAKE SKIN BREAK OUT albuterol AdvReac Intermediate hyperventil Verified 03/19/22 20:56 ate iodine AdvReac Intermediate MIGRANES Verified 03/19/22 20:56 Home Medications Medication Instructions Recorded Confirmed Type sertraline 100 mg tablet 100 mg PO HS 02/13/21 03/19/22 History calcium carbonate 600 mg-vitamin 1 tab PO HS 03/19/22 03/19/22 History D3 10 mcg (400 unit) tablet (Calcium 600 + D(3)) clobetasol 0.05 % topical ointment 1 applic topical DIRECTED PRN 03/19/22 03/19/22 History FLARE UPS ferrous sulfate 325 mg (65 mg 325 mg PO HS 03/19/22 03/19/22 History iron) tablet (iron) fluticasone 250 mcg-salmeterol 50 1 inh inhalation DIRECTED PRN 03/19/22 03/19/22 History mcg/dose blistr powdr for Wheezing inhalation ondansetron HCl 4 mg tablet 4 mg PO Q8H PRN nausea and 03/19/22 Rx vomiting #15 tabs oxycodone 5 mg tablet 5 mg PO Q6H PRN pain #15 tabs 03/19/22 Rx Patient History Medical History (Updated 03/29/22 @ 13:27 by Ebenezer Lopez DO) Acute bronchitis Anxiety Cholecystitis Headache Surgical History (Updated 03/29/22 @ 13:44 by Shani Rankin RN) Hx laparoscopic cholecystectomy Social History Smoking Status: Never smoker Do You Dip or Chew Tobacco: No; Hx Alcohol Use: No Hx Substance Use: No Preferred Language: Slovak Communication Ability: Effective 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 Beliefs That Will Affect Care: None Current Living Situation: Family Other Information That Helps Us Care for You: No Feels Safe at Home: Yes Safety Concerns: Feels Safe At This Time Assistive Devices: None Review of Systems Review of Systems: All systems reviewed & are unremarkable except as noted in HPI & below Physical Exam Constitutional: WD/WN, vitals as above Respiratory: normal respiratory effort, lungs clear to auscultation Cardiovascular: Rate/Rhythm: regular rate and regular rhythm Gastrointestinal (Abdomen): normal bowel sounds, soft, nontender, no hepatosplenomegaly Skin: no rashes, warm and dry Results & Data ([facility]) Vital Signs (Past 12 Hours) Vital Signs Temp Pulse Resp BP Pulse Ox O2 Del Method 03/29/22 07:40 36.6 C 65 18 108/71 94 Room Air 03/28/22 21:19 36.7 C 74 18 134/65 93 Room Air Laboratory Results 03/29/22 03/29/22 03/28/22 Range/Units 06:23 06:23 21:21 WBC 4.90 (4.8-10.8) K/ul RBC 4.39 (3.93-5.22) M/uL Hgb 13.3 (12.0-16.0) g/dl Hct 39.7 (34.1-44.9) % MCV 90.4 (80.0-100.0) fL MCH 30.3 (25.0-34.0) pg MCHC 33.5 (32.0-36.0) g/dL RDW Std Deviation 40.9 (36.4-46.3) fL RDW Coeff of [place] 12.3 (11.5-14.5) % Plt Count 250 (130-400) K/uL MPV 9.7 (9.4-12.3) fL Immature Gran % (Auto) 0.4 % Neut % (Auto) 67.9 % Lymph % (Auto) 17.8 % [place] % (Auto) 9.8 % Eos % (Auto) 3.5 % Baso % (Auto) 0.6 % Neut # (Auto) 3.33 (1.4-6.5) K/uL Lymph # (Auto) 0.87 L (1.2-3.4) K/uL [place] # (Auto) 0.48 (0.24-0.82) K/uL Eos # (Auto) 0.17 (0-0.50) K/uL Baso # (Auto) 0.03 (0-0.2) K/uL Immature Gran # (Auto) 0.02 (0.00-0.02) K/uL Sodium 136 137 (136-145) mmol/L Potassium 3.4 L 3.4 L (3.5-5.1) mmol/L Chloride 104 103 (98-107) mmol/L Carbon Dioxide 25 26 (21-32) mmol/L Anion Gap 7 8 (3-11) BUN 6 6 (6-23) mg/dl Creatinine 0.50 L 0.50 L (0.6-1.2) mg/dl Est Cr Clr Drug Dosing 161.8 161.8 ml/min Est GFR ( Amer) 134.5 134.5 ml/min Est GFR (Non-Af Amer) 116.1 116.1 ml/min BUN/Creatinine Ratio 12.0 (10-20) Glucose 100 H (70-99(Fasting)) mg/dl Fasting Glucose 84 (70-99) mg/dl Calcium 8.2 L 8.7 (8.5-10.1) mg/dl Total Bilirubin 2.5 H 2.3 H (0.2-1.0) mg/dl AST 308 H 308 H (13-39) U/L ALT 555 H 625 H (7-52) U/L Alkaline Phosphatase 321 H 344 H (34-104) U/L Total Protein 5.9 L 6.4 (6.0-8.3) gm/dl Albumin 3.5 3.8 (3.4-5.0) gm/dl Globulin 2.4 L 2.6 (2.5-4.0) gm/dl Albumin/Globulin Ratio 1.5 1.5 (0.9-2) Lipase (11-82) U/L Urine Color Urine Appearance (Clear) Urine pH (4.5-7.5) Ur Specific [place] (1.000-1.030) Urine Protein (Negative) Urine Glucose (UA) (Negative) Urine Ketones (Negative) Urine Blood (Negative) Urine Nitrite (Negative) Urine Bilirubin (Negative) Urine Urobilinogen (Negative) Ur Leukocyte Esterase (Negative) Urine WBC (Auto) (0-5) /hpf Urine RBC (Auto) (0-4) /hpf U Hyaline Cast (Auto) (0-5) /lpf U Epithel Cells (Auto) (0-5) /lpf Urine Bacteria (Auto) (Negative) SARS-CoV-2, RNA, NAAT (NEGATIVE) 03/28/22 03/28/22 03/28/22 Range/Units 18:33 15:29 11:20 WBC (4.8-10.8) K/ul RBC (3.93-5.22) M/uL Hgb (12.0-16.0) g/dl Hct (34.1-44.9) % MCV (80.0-100.0) fL MCH (25.0-34.0) pg MCHC (32.0-36.0) g/dL RDW Std Deviation (36.4-46.3) fL RDW Coeff of Moira (11.5-14.5) % Plt Count (130-400) K/uL MPV (9.4-12.3) fL Immature Gran % (Auto) % Neut % (Auto) % Lymph % (Auto) % [place] % (Auto) % Eos % (Auto) % Baso % (Auto) % Neut # (Auto) (1.4-6.5) K/uL Lymph # (Auto) (1.2-3.4) K/uL [place] # (Auto) (0.24-0.82) K/uL Eos # (Auto) (0-0.50) K/uL Baso # (Auto) (0-0.2) K/uL Immature Gran # (Auto) (0.00-0.02) K/uL Sodium 137 (136-145) mmol/L Potassium 3.6 (3.5-5.1) mmol/L Chloride 104 (98-107) mmol/L Carbon Dioxide 26 (21-32) mmol/L Anion Gap 7 (3-11) BUN 6 (6-23) mg/dl Creatinine 0.47 L (0.6-1.2) mg/dl Est Cr Clr Drug Dosing 172.1 ml/min Est GFR ( Amer) 137.3 ml/min Est GFR (Non-Af Amer) 118.5 ml/min BUN/Creatinine Ratio 12.8 (10-20) Glucose 105 H (70-99(Fasting)) mg/dl Fasting Glucose (70-99) mg/dl Calcium 8.6 (8.5-10.1) mg/dl Total Bilirubin 2.7 H (0.2-1.0) mg/dl AST 382 H (13-39) U/L ALT 631 H (7-52) U/L Alkaline Phosphatase 325 H (34-104) U/L Total Protein 6.4 (6.0-8.3) gm/dl Albumin 3.8 (3.4-5.0) gm/dl Globulin 2.6 (2.5-4.0) gm/dl Albumin/Globulin Ratio 1.5 (0.9-2) Lipase 16 (11-82) U/L Urine Color Dark Yellow Urine Appearance Clear (Clear) Urine pH 5.5 (4.5-7.5) Ur Specific [place] > 1.060 H (1.000-1.030) Urine Protein Trace H (Negative) Urine Glucose (UA) Negative (Negative) Urine Ketones 2+ H (Negative) Urine Blood Trace H (Negative) Urine Nitrite Negative (Negative) Urine Bilirubin 1+ H (Negative) Urine Urobilinogen Positive H (Negative) Ur Leukocyte Esterase Negative (Negative) Urine WBC (Auto) 1-5 (0-5) /hpf Urine RBC (Auto) 0-4 (0-4) /hpf U Hyaline Cast (Auto) 10-30 H (0-5) /lpf U Epithel Cells (Auto) >30 H (0-5) /lpf Urine Bacteria (Auto) Negative (Negative) SARS-CoV-2, RNA, NAAT NEGATIVE (NEGATIVE) 03/28/22 Range/Units 11:20 WBC 4.34 L (4.8-10.8) K/ul RBC 4.51 (3.93-5.22) M/uL Hgb 13.9 (12.0-16.0) g/dl Hct 40.8 (34.1-44.9) % MCV 90.5 (80.0-100.0) fL MCH 30.8 (25.0-34.0) pg MCHC 34.1 (32.0-36.0) g/dL RDW Std Deviation 41.1 (36.4-46.3) fL RDW Coeff of [place] 12.4 (11.5-14.5) % Plt Count 277 (130-400) K/uL MPV 10.4 (9.4-12.3) fL Immature Gran % (Auto) 0.5 % Neut % (Auto) 68.1 % Lymph % (Auto) 16.6 % [place] % (Auto) 10.6 % Eos % (Auto) 3.5 % Baso % (Auto) 0.7 % Neut # (Auto) 2.96 (1.4-6.5) K/uL Lymph # (Auto) 0.72 L (1.2-3.4) K/uL [place] # (Auto) 0.46 (0.24-0.82) K/uL Eos # (Auto) 0.15 (0-0.50) K/uL Baso # (Auto) 0.03 (0-0.2) K/uL Immature Gran # (Auto) 0.02 (0.00-0.02) K/uL Sodium (136-145) mmol/L Potassium (3.5-5.1) mmol/L Chloride (98-107) mmol/L Carbon Dioxide (21-32) mmol/L Anion Gap (3-11) BUN (6-23) mg/dl Creatinine (0.6-1.2) mg/dl Est Cr Clr Drug Dosing ml/min Est GFR ( Amer) ml/min Est GFR (Non-Af Amer) ml/min BUN/Creatinine Ratio (10-20) Glucose (70-99(Fasting)) mg/dl Fasting Glucose (70-99) mg/dl Calcium (8.5-10.1) mg/dl Total Bilirubin (0.2-1.0) mg/dl AST (13-39) U/L ALT (7-52) U/L Alkaline Phosphatase (34-104) U/L Total Protein (6.0-8.3) gm/dl Albumin (3.4-5.0) gm/dl Globulin (2.5-4.0) gm/dl Albumin/Globulin Ratio (0.9-2) Lipase (11-82) U/L Urine Color Urine Appearance (Clear) Urine pH (4.5-7.5) Ur Specific [place] (1.000-1.030) Urine Protein (Negative) Urine Glucose (UA) (Negative) Urine Ketones (Negative) Urine Blood (Negative) Urine Nitrite (Negative) Urine Bilirubin (Negative) Urine Urobilinogen (Negative) Ur Leukocyte Esterase (Negative) Urine WBC (Auto) (0-5) /hpf Urine RBC (Auto) (0-4) /hpf U Hyaline Cast (Auto) (0-5) /lpf U Epithel Cells (Auto) (0-5) /lpf Urine Bacteria (Auto) (Negative) SARS-CoV-2, RNA, NAAT (NEGATIVE)
[2022-03-29] MEDS: D5W AND 1/2NSS + 20MEQ KCL 20 MEQ/1,000 ML BAG IV SCH ×2 (10:26→20:21)
--- NOTE | 2022-03-29 11:41 | Surgery Progress Note ---
Date of Service March 29, 2022 Assessment & Plan (1) Right upper quadrant abdominal pain: Plan: POD # 4 s/p outpatient lap ned avss ? bile leak vs developing abscess MRCP showing dilated CBD at 10 mm Plan: Going for ERCP today keep npo continue iv fluids Continue IV Zosyn pain management as needed Dr. Lam has seen and examined pt, agrees with above. Admission and Anticipated Discharge Date Admission Date: March 28, 2022 Subjective feeling better today, pain is not as severe and not having spasms of pain no nausea or vomiting no chest pain or shortness of breath no fevers or chills going for ERCP today Physical Exam Constitutional: WD/WN, vitals as above no acute distress and not ill appearing Neck: normal visual inspection and trachea midline Respiratory: normal respiratory effort; no respiratory distress and no labored breathing Gastrointestinal (Abdomen): Inspection/Auscultation: abdomen normal to inspection, + abdominal surgical incision (covered with steri strips) and + hypoactive bowel sounds; abdomen not distended and + abnormal bowel sounds Percussion/Palpation: + abdomen tender (RUQ on deep palpation) and abdomen soft; no guarding and abdomen not rigid Skin: no rashes, warm and dry no jaundice Psychiatric: Orientation: alert and oriented x 3 Affect: + flat affect Results & Data ([facility]) Vital Signs (Past 12 Hours) Vital Signs Temp Pulse Resp BP Pulse Ox O2 Del Method 03/29/22 07:40 36.6 C 65 18 108/71 94 Room Air Laboratory Results 03/29/22 03/29/22 03/28/22 Range/Units 06:23 06:23 21:21 WBC 4.90 (4.8-10.8) K/ul RBC 4.39 (3.93-5.22) M/uL Hgb 13.3 (12.0-16.0) g/dl Hct 39.7 (34.1-44.9) % MCV 90.4 (80.0-100.0) fL MCH 30.3 (25.0-34.0) pg MCHC 33.5 (32.0-36.0) g/dL RDW Std Deviation 40.9 (36.4-46.3) fL RDW Coeff of Moira 12.3 (11.5-14.5) % Plt Count 250 (130-400) K/uL MPV 9.7 (9.4-12.3) fL Immature Gran % (Auto) 0.4 % Neut % (Auto) 67.9 % Lymph % (Auto) 17.8 % [place] % (Auto) 9.8 % Eos % (Auto) 3.5 % Baso % (Auto) 0.6 % Neut # (Auto) 3.33 (1.4-6.5) K/uL Lymph # (Auto) 0.87 L (1.2-3.4) K/uL [place] # (Auto) 0.48 (0.24-0.82) K/uL Eos # (Auto) 0.17 (0-0.50) K/uL Baso # (Auto) 0.03 (0-0.2) K/uL Immature Gran # (Auto) 0.02 (0.00-0.02) K/uL Sodium 136 137 (136-145) mmol/L Potassium 3.4 L 3.4 L (3.5-5.1) mmol/L Chloride 104 103 (98-107) mmol/L Carbon Dioxide 25 26 (21-32) mmol/L Anion Gap 7 8 (3-11) BUN 6 6 (6-23) mg/dl Creatinine 0.50 L 0.50 L (0.6-1.2) mg/dl Est Cr Clr Drug Dosing 161.8 161.8 ml/min Est GFR ( Amer) 134.5 134.5 ml/min Est GFR (Non-Af Amer) 116.1 116.1 ml/min BUN/Creatinine Ratio 12.0 (10-20) Glucose 100 H (70-99(Fasting)) mg/dl Fasting Glucose 84 (70-99) mg/dl Calcium 8.2 L 8.7 (8.5-10.1) mg/dl Total Bilirubin 2.5 H 2.3 H (0.2-1.0) mg/dl AST 308 H 308 H (13-39) U/L ALT 555 H 625 H (7-52) U/L Alkaline Phosphatase 321 H 344 H (34-104) U/L Total Protein 5.9 L 6.4 (6.0-8.3) gm/dl Albumin 3.5 3.8 (3.4-5.0) gm/dl Globulin 2.4 L 2.6 (2.5-4.0) gm/dl Albumin/Globulin Ratio 1.5 1.5 (0.9-2) Lipase (11-82) U/L Urine Color Urine Appearance (Clear) Urine pH (4.5-7.5) Ur Specific [place] (1.000-1.030) Urine Protein (Negative) Urine Glucose (UA) (Negative) Urine Ketones (Negative) Urine Blood (Negative) Urine Nitrite (Negative) Urine Bilirubin (Negative) Urine Urobilinogen (Negative) Ur Leukocyte Esterase (Negative) Urine WBC (Auto) (0-5) /hpf Urine RBC (Auto) (0-4) /hpf U Hyaline Cast (Auto) (0-5) /lpf U Epithel Cells (Auto) (0-5) /lpf Urine Bacteria (Auto) (Negative) SARS-CoV-2, RNA, NAAT (NEGATIVE) 03/28/22 03/28/22 03/28/22 Range/Units 18:33 15:29 11:20 WBC (4.8-10.8) K/ul RBC (3.93-5.22) M/uL Hgb (12.0-16.0) g/dl Hct (34.1-44.9) % MCV (80.0-100.0) fL MCH (25.0-34.0) pg MCHC (32.0-36.0) g/dL RDW Std Deviation (36.4-46.3) fL RDW Coeff of Moira (11.5-14.5) % Plt Count (130-400) K/uL MPV (9.4-12.3) fL Immature Gran % (Auto) % Neut % (Auto) % Lymph % (Auto) % [place] % (Auto) % Eos % (Auto) % Baso % (Auto) % Neut # (Auto) (1.4-6.5) K/uL Lymph # (Auto) (1.2-3.4) K/uL [place] # (Auto) (0.24-0.82) K/uL Eos # (Auto) (0-0.50) K/uL Baso # (Auto) (0-0.2) K/uL Immature Gran # (Auto) (0.00-0.02) K/uL Sodium 137 (136-145) mmol/L Potassium 3.6 (3.5-5.1) mmol/L Chloride 104 (98-107) mmol/L Carbon Dioxide 26 (21-32) mmol/L Anion Gap 7 (3-11) BUN 6 (6-23) mg/dl Creatinine 0.47 L (0.6-1.2) mg/dl Est Cr Clr Drug Dosing 172.1 ml/min Est GFR ( Amer) 137.3 ml/min Est GFR (Non-Af Amer) 118.5 ml/min BUN/Creatinine Ratio 12.8 (10-20) Glucose 105 H (70-99(Fasting)) mg/dl Fasting Glucose (70-99) mg/dl Calcium 8.6 (8.5-10.1) mg/dl Total Bilirubin 2.7 H (0.2-1.0) mg/dl AST 382 H (13-39) U/L ALT 631 H (7-52) U/L Alkaline Phosphatase 325 H (34-104) U/L Total Protein 6.4 (6.0-8.3) gm/dl Albumin 3.8 (3.4-5.0) gm/dl Globulin 2.6 (2.5-4.0) gm/dl Albumin/Globulin Ratio 1.5 (0.9-2) Lipase 16 (11-82) U/L Urine Color Dark Yellow Urine Appearance Clear (Clear) Urine pH 5.5 (4.5-7.5) Ur Specific [place] > 1.060 H (1.000-1.030) Urine Protein Trace H (Negative) Urine Glucose (UA) Negative (Negative) Urine Ketones 2+ H (Negative) Urine Blood Trace H (Negative) Urine Nitrite Negative (Negative) Urine Bilirubin 1+ H (Negative) Urine Urobilinogen Positive H (Negative) Ur Leukocyte Esterase Negative (Negative) Urine WBC (Auto) 1-5 (0-5) /hpf Urine RBC (Auto) 0-4 (0-4) /hpf U Hyaline Cast (Auto) 10-30 H (0-5) /lpf U Epithel Cells (Auto) >30 H (0-5) /lpf Urine Bacteria (Auto) Negative (Negative) SARS-CoV-2, RNA, NAAT NEGATIVE (NEGATIVE) 03/28/22 Range/Units 11:20 WBC 4.34 L (4.8-10.8) K/ul RBC 4.51 (3.93-5.22) M/uL Hgb 13.9 (12.0-16.0) g/dl Hct 40.8 (34.1-44.9) % MCV 90.5 (80.0-100.0) fL MCH 30.8 (25.0-34.0) pg MCHC 34.1 (32.0-36.0) g/dL RDW Std Deviation 41.1 (36.4-46.3) fL RDW Coeff of Moira 12.4 (11.5-14.5) % Plt Count 277 (130-400) K/uL MPV 10.4 (9.4-12.3) fL Immature Gran % (Auto) 0.5 % Neut % (Auto) 68.1 % Lymph % (Auto) 16.6 % [place] % (Auto) 10.6 % Eos % (Auto) 3.5 % Baso % (Auto) 0.7 % Neut # (Auto) 2.96 (1.4-6.5) K/uL Lymph # (Auto) 0.72 L (1.2-3.4) K/uL [place] # (Auto) 0.46 (0.24-0.82) K/uL Eos # (Auto) 0.15 (0-0.50) K/uL Baso # (Auto) 0.03 (0-0.2) K/uL Immature Gran # (Auto) 0.02 (0.00-0.02) K/uL Sodium (136-145) mmol/L Potassium (3.5-5.1) mmol/L Chloride (98-107) mmol/L Carbon Dioxide (21-32) mmol/L Anion Gap (3-11) BUN (6-23) mg/dl Creatinine (0.6-1.2) mg/dl Est Cr Clr Drug Dosing ml/min Est GFR ( Amer) ml/min Est GFR (Non-Af Amer) ml/min BUN/Creatinine Ratio (10-20) Glucose (70-99(Fasting)) mg/dl Fasting Glucose (70-99) mg/dl Calcium (8.5-10.1) mg/dl Total Bilirubin (0.2-1.0) mg/dl AST (13-39) U/L ALT (7-52) U/L Alkaline Phosphatase (34-104) U/L Total Protein (6.0-8.3) gm/dl Albumin (3.4-5.0) gm/dl Globulin (2.5-4.0) gm/dl Albumin/Globulin Ratio (0.9-2) Lipase (11-82) U/L Urine Color Urine Appearance (Clear) Urine pH (4.5-7.5) Ur Specific [place] (1.000-1.030) Urine Protein (Negative) Urine Glucose (UA) (Negative) Urine Ketones (Negative) Urine Blood (Negative) Urine Nitrite (Negative) Urine Bilirubin (Negative) Urine Urobilinogen (Negative) Ur Leukocyte Esterase (Negative) Urine WBC (Auto) (0-5) /hpf Urine RBC (Auto) (0-4) /hpf U Hyaline Cast (Auto) (0-5) /lpf U Epithel Cells (Auto) (0-5) /lpf Urine Bacteria (Auto) (Negative) SARS-CoV-2, RNA, NAAT (NEGATIVE) Diagnostic Findings MR MRCP CLINICAL HISTORY: RUQ pain, S/P lap ned TECHNIQUE: Multiplanar multisequence MR images of the abdomen were obtained, as per MRCP protocol. . COMPARISON: Comparison is made to CT abdomen pelvis 03/28/2022 FINDINGS: Lower chest: No acute abnormality Liver: Unremarkable. No focal lesions are seen. Gallbladder and biliary tree: Patient is status post cholecystectomy. There is prominent susceptibility artifact in the gallbladder fossa. Please see CT abdomen pelvis performed same day for findings of gas/fluid collection. The comm on bile duct measures 10 mm in diameter. Mild prominence of the intrahepatic bile ducts is seen. Pancreas: Unremarkable were visualized. Spleen: Tiny T2 hyperintensities may represent hemangioma. Adrenals: Unremarkable. Kidneys and ureters: Unremarkable. Bowel: Unremarkable. Lymph nodes Retroperitoneal: Unremarkable. Mesenteric: Unremarkable. Peritoneum: Normal Vessels: Unremarkable. Abdominal wall: Unremarkable. Bones: Unremarkable. IMPRESSION: Status post cholecystectomy. The common bile duct is prominent measuring 10 mm, this may be physiologic or reactive to surrounding inflammation. No choledocholithiasis is seen. Please see CT abdomen pelvis performed same day for findings of gas and fluid at the postsurgical site.
--- NOTE | 2022-03-29 13:27 | Anesthesiology Consultation ---
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 Operation Date: 03/29/22 10:00 Proposed Procedures p Endoscopic Retrograde Cholangiopancreatogram - Silvia Nunn MD Height/Weight Height: 5 ft 6 in Weight: 93.3 kg Allergies Allergy/AdvReac Type Severity Reaction Status Date / Time sulfamethoxazole [Bactrim] Allergy Intermediate Flushing Verified 03/19/22 20:56 trimethoprim [Bactrim] Allergy Intermediate Flushing Verified 03/19/22 20:56 latex Allergy Mild LATEX Verified 03/19/22 20:56 GLOVES MAKE SKIN BREAK OUT albuterol AdvReac Intermediate hyperventil Verified 03/19/22 20:56 ate iodine AdvReac Intermediate MIGRANES Verified 03/19/22 20:56 Medications Home Medications Medication Instructions Recorded Confirmed Last Taken sertraline 100 mg tablet 100 mg PO HS 02/13/21 03/19/22 03/18/22 calcium carbonate 600 mg-vitamin 1 tab PO HS 03/19/22 03/19/22 03/18/22 D3 10 mcg (400 unit) tablet (Calcium 600 + D(3)) clobetasol 0.05 % topical ointment 1 applic topical DIRECTED PRN 03/19/22 03/19/22 Unknown FLARE UPS ferrous sulfate 325 mg (65 mg 325 mg PO HS 03/19/22 03/19/22 03/18/22 iron) tablet (iron) fluticasone 250 mcg-salmeterol 50 1 inh inhalation DIRECTED PRN 03/19/22 03/19/22 Unknown mcg/dose blistr powdr for Wheezing inhalation ondansetron HCl 4 mg tablet 4 mg PO Q8H PRN nausea and 03/19/22 Unknown vomiting #15 tabs oxycodone 5 mg tablet 5 mg PO Q6H PRN pain #15 tabs 03/19/22 Unknown Active Medications Generic Name Dose Route Start Last Admin Trade Name Freq PRN Reason Stop Dose Admin Ferrous Sulfate 325 mg 03/28/22 21:07 03/28/22 22:13 Ferrous Sulfate 325 Mg Tab PO 04/27/22 21:06 Not Given HS [facility] Hydromorphone HCl 1 mg 03/28/22 21:07 03/29/22 12:47 Hydromorphone Inj 1 Mg/Ml Syringe IV 04/11/22 21:06 1 mg Q6H PRN Administration Pain Potassium Chloride/Dextrose/Sod Cl 20 meq in 1,000 mls @ 100 mls/hr 03/28/22 22:00 03/29/22 10:26 D5w And 1/2nss + 20meq Kcl IV 04/27/22 21:59 100 mls/hr .Q10H ANASTASIA Administration Protocol Piperacillin Sod/Tazobactam 115 mls @ 28.75 mls/hr 03/29/22 03:00 03/29/22 10:58 Sod 3.375 gm/ Dextrose IV 04/08/22 02:59 28.8 mls/hr Q8H ANASTASIA Administration Protocol Miscellaneous 1 each 03/29/22 00:00 03/29/22 07:29 Clobetasol 0.05 % Ointment ~ Order Awaiting Action N/A 04/28/22 00:00 Not Given QS ANASTASIA Multivitamins/Minerals 1 tab 03/28/22 21:07 03/28/22 22:13 Calcium 600mg + Vit D 400 Iu Tab PO 04/27/22 21:06 Not Given HS ANASTASIA Oxycodone HCl 5 mg 03/28/22 21:07 03/29/22 04:50 Oxycodone Hcl Ir 5 Mg Tab (Immediate Release) PO 04/11/22 21:06 5 mg Q6H PRN Administration pain Sertraline HCl 100 mg 03/28/22 21:07 03/28/22 22:09 Sertraline Hcl 100 Mg Tablet PO 04/27/22 21:06 100 mg HS ANASTASIA Administration Past Medical History Medical History Acute bronchitis Anxiety Cholecystitis Headache Social History Smoking Status: Never smoker Do You Dip or Chew Tobacco: No Hx Alcohol Use: No Hx Substance Use: No Physical Exam Vital Signs Last Vital Signs Temp 97.9 F 03/29/22 07:40 Pulse 65 03/29/22 07:40 Resp 18 03/29/22 07:40 BP 108/71 03/29/22 07:40 Pulse Ox 94 03/29/22 07:40 O2 Del Method 03/29/22 07:40 Testing Laboratory Results 03/29/22 06:23 03/29/22 06:23 Urine Color Dark Yellow 03/28/22 15:29 Urine Appearance Clear (Clear) 03/28/22 15:29 Urine pH 5.5 (4.5-7.5) 03/28/22 15:29 Ur Specific [place] > 1.060 (1.000-1.030) H 03/28/22 15:29 Urine Protein Trace (Negative) H 03/28/22 15:29 Urine Glucose (UA) Negative (Negative) 03/28/22 15:29 Urine Ketones 2+ (Negative) H 03/28/22 15:29 Urine Nitrite Negative (Negative) 03/28/22 15:29 Ur Leukocyte Esterase Negative (Negative) 03/28/22 15:29 Urine WBC (Auto) 1-5 /hpf (0-5) 03/28/22 15:29 Urine RBC (Auto) 0-4 /hpf (0-4) 03/28/22 15:29 U Hyaline Cast (Auto) 10-30 /lpf (0-5) H 03/28/22 15:29 U Epithel Cells (Auto) >30 /lpf (0-5) H 03/28/22 15:29 Urine Bacteria (Auto) Negative (Negative) 03/28/22 15:29 Electrocardiogram Date: 03/28/22 Findings: + NSR @ (63 bpm) Chest X-Ray Date: 03/19/22 IMPRESSION: Low lung volumes with a few bibasilar linear densities suggesting subsegmental atelectasis.
[2022-03-29 14:04] LABS: Pregnancy Test, Serum Negative (Negative)
[2022-03-29] MEDS ORDERED: fentaNYL citrate 100 MCG/2 ML VIAL ONE ×3 (14:51→16:47)
[2022-03-29] MEDS ORDERED: PROPOFOL IV EMULSION 10 MG/ML 20 ML VIAL IV ONE (14:51)
[2022-03-29] MEDS ORDERED: MIDAZOLAM HCL 1 MG/ML 2ML VIAL ONE (14:51)
[2022-03-29] MEDS ORDERED: LIDOCAINE 2% MPF LOCAL 5 ML VIAL INFIL ONE (14:51)
[2022-03-29] MEDS ORDERED: fentaNYL citrate 100 MCG/2 ML VIAL IV PRN (14:55)
[2022-03-29] MEDS ORDERED: ATROPINE SULFATE 0.1 MG/ML 10ML SYR IV PRN (14:55)
[2022-03-29] MEDS ORDERED: ONDANSETRON INJ 2 MG/ML 2 ML VIAL IV PRN (14:55)
[2022-03-29] MEDS ORDERED: ePHEDrine sulfate 50 MG/ML AMP IV PRN (14:55)
[2022-03-29] MEDS ORDERED: FAMOTIDINE/PF 20 MG/2 ML VIAL IV ONE (15:00)
--- NOTE | 2022-03-29 16:05 | History & Physical Bridge Note ---
Date of Service March 29, 2022 History & Physical Bridge Note I have examined the patient, reviewed the History & Physical and in the interval since the performance of the History & Physical I have noted the following changes of clinical significance: no changes noted EUS/ERCP Patient was explained in detail regarding risks, benefits, limitations and alternatives of the above endoscopic procedure. Risks of intravenous sedation used for procedure were also explained. Risks include, but not limited to per foration, bleeding, infection, respiratory distress, cardiac arrest and . Patient is also aware about the possibility of missed lesion. Patient's questions were answered. The patient verbalized understanding the information and agreed to undergo the procedure.
[2022-03-29] MEDS ORDERED: INDOMETHACIN 50 MG SUPP PR ONE (16:28)
[2022-03-29] MEDS ORDERED: ROCURONIUM BROMIDE 10 MG/ML 5 ML VIAL IV ONE (17:11)
[2022-03-29] MEDS ORDERED: SUCCINYLCHOLINE CHLORIDE 20 MG/ML 10 ML VIAL IV ONE (17:11)
--- NOTE | 2022-03-29 17:16 | Operative Report ---
Post Operative Report Pre & Post Diagnosis Operation Date: 03/29/22 10:00 Pre-Op Diagnosis: VOMITING, LOWER ABDOMINAL PAIN Post-Op Diagnosis: eus ercp with stone extraction, pancreatic and common bile duct stent placement I identified the patient and participated in the time-out.: Yes Procedure Operation Date: 03/29/22 10:00 Actual Procedures p Endoscopic Ultrasonography Upper - Silvia Nunn MD p Endoscopic Retrograde Cholangiopancreato - Silvia Nunn MD Surgeon Silvia Nunn MD Mix Technician None Estimated Blood Loss 0 Findings See Below (CBD stone removed, stents placed) Specimens None Description of Procedure EUS/ERCP I attest to the content of the Intraoperative Record and any orders documented therein. Any exceptions are noted below.
--- NOTE | 2022-03-29 17:22 | GI REPORT ---
Patient Name: Marita Smith Procedure Date: 03/29/2022 3:35 PM Date of : 1975 Admit Type: Inpatient Age: 46 Gender: Female Attending MD: Silvia Nunn MD Procedure: Upper EUS Providers: Silvia Nunn MD Referring MD: Jessica Martell Md Indications: Elevated liver enzymes Medicines: General Anesthesia Complications: No immediate complications. Estimated Blood Loss: Estimated blood loss: none. Procedure: Pre-Anesthesia Assessment: - Prior to the procedure, a History and Physical was performed, and patient medications, allergies and sensitivities were reviewed. The patient's tolerance of previous anesthesia was reviewed. - The risks and benefits of the procedure and the sedation options and risks were discussed with the patient. All questions were answered and informed consent was obtained. - Patient identification and proposed procedure were verified prior to the procedure by the physician and the nurse. The procedure was verified in the procedure room. - Pre-procedure physical examination revealed no contraindications to sedation. After obtaining informed consent, the endoscope was passed under direct vision. Throughout the procedure, the patient's blood pressure, pulse, and oxygen saturations were monitored continuously. The Endosonoscope was introduced through the mouth, and advanced to the second part of duodenum. The upper EUS was accomplished without difficulty. The patient tolerated the procedure well. Findings: ENDOSONOGRAPHIC FINDING: : There was no sign of significant endosonographic abnormality in the ampulla. No masses were identified. There was dilation in the common bile duct which measured up to 9 mm. One stone was visualized endosonographically in the common bile duct. It was hyperechoic and characterized by shadowing. Evidence of a previous cholecystectomy was identified endosonographically. There was no sign of significant endosonographic abnormality in the visualized portion of the liver. Homogeneous parenchyma was identified. There was no sign of significant endosonographic abnormality in the entire pancreas. The pancreatic duct measured up to 2 mm in diameter. There was no sign of significant endosonographic abnormality in the left adrenal gland. Impression: - There was no sign of significant pathology in the ampulla. - There was dilation in the common bile duct which measured up to 9 mm. - One stone was visualized endosonographically in the common bile duct. - Evidence of a cholecystectomy. - There was no evidence of significant pathology in the visualized portion of the liver. - There was no sign of significant pathology in the entire pancreas. - Endosonographic images of the left adrenal gland were unremarkable. - No specimens collected. Recommendation: - Perform an ERCP today. Silvia Nunn MD 03/29/2022 5:22:15 PM This report has been signed electronically. Note Initiated On: 03/29/2022 3:35 PM Number of Addenda: 0 I attest to the content of the Intraoperative Record and orders documented therein, exceptions below {[id number]}
--- NOTE | 2022-03-29 17:27 | GI REPORT ---
Patient Name: Marita Smith Procedure Date: 03/29/2022 3:36 PM Date of : 1975 Admit Type: Inpatient Age: 46 Gender: Female Attending MD: Silvia Nunn MD Procedure: ERCP Providers: Silvia Nunn MD Referring MD: Jessica Martell Md Indications: For therapy of bile duct stone(s) Medicines: General Anesthesia Complications: No immediate complications. Estimated Blood Loss: Estimated blood loss: none. Procedure: Pre-Anesthesia Assessment: - Prior to the procedure, a History and Physical was performed, and patient medications, allergies and sensitivities were reviewed. The patient's tolerance of previous anesthesia was reviewed. - The risks and benefits of the procedure and the sedation options and risks were discussed with the patient. All questions were answered and informed consent was obtained. - Patient identification and proposed procedure were verified prior to the procedure by the physician and the nurse. The procedure was verified in the procedure room. - Pre-procedure physical examination revealed no contraindications to sedation. After obtaining informed consent, the scope was passed under direct vision. Throughout the procedure, the patient's blood pressure, pulse, and oxygen saturations were monitored continuously. The Duodenoscope was introduced through the mouth, and advanced to the duodenum and used to inject contrast into the bile duct. The ERCP was accomplished without difficulty. The patient tolerated the procedure well. Findings: A supervisor drawing film of the abdomen was obtained. Surgical clips, consistent with a previous cholecystectomy, were seen in the area of the right upper quadrant of the abdomen. The esophagus was successfully intubated under direct vision. The scope was advanced to a normal major papilla in the descending duodenum without detailed examination of the pharynx, larynx and associated structures, and upper GI tract. The upper GI tract was grossly normal. The ventral pancreatic duct was inadvertently cannulated. A biliary pre-cut sphincterotomy was made with a monofilament needle knife using a freehand technique using ERBE electrocautery. There was no post-sphincterotomy bleeding. A 0.025 inch x 270 cm angled Visiglide wire was passed into the biliary tree. The CleverCut distal wire sphincterotome was passed over the guidewire and the bile duct was then deeply cannulated. Contrast was injected. I personally interpreted the bile duct images. Ductal flow of contrast was adequate. Image quality was adequate. Contrast extended to the main bile duct. Opacification of the entire biliary tree except for the gallbladder was successful. The maximum diameter of the ducts was 10 mm. The biliary sphincterotomy was extended with a monofilament traction (standard) sphincterotome using ERBE electrocautery. There was no post-sphincterotomy bleeding. The biliary tree was swept with a 15 mm balloon starting at the bifurcation. One stone was removed. No stones remained. Sludge was swept from the duct. One 5 Fr by 9 cm plastic pancreatic stent with a single external pigtail and no internal flaps was placed into the ventral pancreatic duct. Clear fluid flowed through the stent. The stent was in good position. One 10 mm by 6 cm covered metal biliary stent was placed into the common bile duct. Bile flowed through the stent. The stent was in good position. Indomethacin 100 mg was given via suppository to decrease the risk of post-ERCP pancreatitis (PEP). Impression: - Choledocholithiasis was found. Complete removal was accomplished by biliary sphincterotomy and balloon extraction. - One plastic pancreatic stent was placed into the ventral pancreatic duct and Indomethacin given to decrease risk of post-ERCP pancreatitis. - One covered metal biliary stent was placed into the common bile duct. Recommendation: - [facility]. - Repeat ERCP in 4 - 6 weeks to remove stents. Silvia Nunn MD 03/29/2022 5:26:54 PM This report has been signed electronically. Note Initiated On: 03/29/2022 3:36 PM Number of Addenda: 0 I attest to the content of the Intraoperative Record and orders documented therein, exceptions below {[id number]}
--- NOTE | 2022-03-29 17:33 | Fluoroscopy Report ---
[place] ERCP biliary ductal CLINICAL HISTORY: ERCP IN OR TECHNIQUE: 13 views were obtained with the C-arm in the OR with the above procedure. Total fluoroscop y time was 2 minutes 55 seconds. Total skin dose was 13.0 mGy. Comparison: None available at the time of this dictation. FINDINGS/IMPRESSION: Intraoperative images were obtained of ERCP. Please correlate with intraoperative fluoroscopy and operative report. ACT 112: Negative or not required by law. Electronically signed by: Josue Peñaloza M.D. 03/29/2022 5:31 PM
[2022-03-29] MEDS ORDERED: IPRATROPIUM BROMIDE NEB SOLN 0.02% 2.5 ML VIAL NEB STA (17:53)
--- NOTE | 2022-03-29 18:40 | Anesthesiology Progress Note ---
Date of Service March 29, 2022 Anesthesia Post Procedure Vital Signs Vital Signs: Temp Pulse Pulse Pulse Resp BP BP 03/29/22 17:55 62 14 148/86 H 03/29/22 17:45 62 15 130/91 03/29/22 18:15 36.8 C 63 23 143/79 H 03/29/22 18:05 64 19 150/84 H 03/29/22 17:35 77 17 152/95 H 03/29/22 17:26 36.1 C L 89 12 138/86 03/29/22 14:34 36.7 C 72 18 112/73 03/29/22 07:40 36.6 C 65 18 108/71 03/28/22 21:19 36.7 C 74 18 134/65 03/28/22 20:31 68 20 123/84 03/28/22 20:00 123/84 03/28/22 19:30 117/77 Pulse Ox O2 Del Method O2 Flow Rate 03/29/22 17:55 94 Nasal Cannula 6 03/29/22 17:45 93 Nasal Cannula 6 03/29/22 18:15 97 Nasal Cannula 3 03/29/22 18:05 96 Oxymask 10 03/29/22 17:35 94 Nasal Cannula 6 03/29/22 17:26 91 Nasal Cannula 6 03/29/22 14:34 92 Room Air 03/29/22 07:40 94 Room Air 03/28/22 21:19 93 Room Air 03/28/22 20:31 94 Room Air 03/28/22 20:00 94 Room Air 03/28/22 19:30 93 Room Air Pain Intensity Right Upper Abdomen: Pain Intensity: 7 Transfer of Care Handoff Completed per policy Notes Mental Status: alert / awake / arousable and participated in evaluation Patient Amnestic to Procedure: Yes Nausea / Vomiting: adequately controlled Pain: adequately controlled Airway Patency, RR, SpO2: stable & adequate BP & HR: stable & adequate Hydration State: stable & adequate Anesthetic Complications: no major complications apparent and Pt Satisfied with anesthetic care
[2022-03-29] MEDS: FERROUS SULFATE 325 MG TAB PO SCH (20:22)
[2022-03-29] MEDS: CALCIUM 600MG + VIT D 400 IU TAB PO SCH (20:22)
[2022-03-29] MEDS: SERTRALINE HCL 100 MG TABLET PO SCH (21:18)
[2022-03-30] MEDS: PIPERACILLIN/TAZOBACTAM 3.375 GM in DEXTROSE 5% 100 ML IV SCH ×3 (02:53→18:17)
[2022-03-30 07:06] LABS: Basophils # (auto) 0.02 K/uL (0-0.2); Basophils % (auto) 0.4 %; Eosinophils # (auto) 0.21 K/uL (0-0.50); Eosinophils % (auto) 4.4 %; Hematocrit (blood only) 37.4 % (34.1-44.9); Hemoglobin 12.5 g/dl (12.0-16.0); Immature Granulocytes # (auto) 0.01 K/uL (0.00-0.02); Immature Granulocytes % (auto) 0.2 %; Lymphocytes # (auto) 1.19 K/uL (1.2-3.4); Lymphocytes % (auto) 25.2 %; Mean Corpuscular Hgb Conc 33.4 g/dL (32.0-36.0); Mean Corpuscular Volume 89.9 fL (80.0-100.0); Mean Platelet Volume 10.1 fL (9.4-12.3); Monocytes # (auto) 0.37 K/uL (0.24-0.82); Monocytes % (auto) 7.8 %; Neutrophils # (auto) 2.92 K/uL (1.4-6.5); Platelet Count 251 K/uL (130-400); RDW Standard Deviation 39.6 fL (36.4-46.3); Red Blood Count 4.16 M/uL (3.93-5.22); White Blood Count 4.72 K/ul (4.8-10.8)
[2022-03-30 07:29] LABS: Albumin Level 3.2 gm/dl (3.4-5.0); BUN Creatinine Ratio 10.9 (10-20); Bilirubin Direct 0.4 mg/dl (0-0.2); Bilirubin,Total 1.8 mg/dl (0.2-1.0); Calcium 8.2 mg/dl (8.5-10.1); Creatinine Clr Calc Pharmacy 175.9 ml/min; Est GFR (African American) 138.3 ml/min; Est GFR (Non-African American) 119.3 ml/min; Potassium 3.3 mmol/L (3.5-5.1); Total Protein 5.6 gm/dl (6.0-8.3)
--- NOTE | 2022-03-30 09:00 | Gastroenterology Progress Note ---
Date of Service March 30, 2022 Assessment & Plan (1) Right upper quadrant abdominal pain: Plan: 46 year old female admitted with abd pain, nausea, vomiting, history of CCY four days ago, imaging showing gas and fluid collection in the right upper quadrant with associated soft tissue stranding, CBD dilation at 10 mm. She has significantly elevated LFTs w/ Tbili 2.5, AST 308, ALT 555, ALKP 321. S/P EUS/ERCP w/ retained biliary stones s/p extraction, stent placement No GI contraindication to diet No GI contraindication do discharge Needs ERCP in 4-6 weeks for stent removal No NSAIDs x 1 week Thank you for allowing us to participate in the care of this patient. Please call with any acute changes, questions or concerns. Please see addendum below with additional recommendation from my supervising physician. Admission and Anticipated Discharge Date Admission Date: March 28, 2022 Supervising Physician Co-Signing Physician Notes Attg add: I interviewed and examined pt, reviewed chart and labs. Pt with fall in LFTs. Recs as above. will sign off. Subjective Pt was seen and evaluated, chart reviewed. Feeling well, improved s/p ERCP w/ stone extraction and stent placement. Is going to attempt PO intake this AM. No abd pain, nausea, vomiting. Passing gas. No BM in 2 days. EUS: - There was no sign of significant pathology in the ampulla. - There was dilation in the common bile duct which measured up to 9 mm. - One stone was visualized endosonographically in the common bile duct. - Evidence of a cholecystectomy. - There was no evidence of significant pathology in the visualized portion of the liver. - There was no sign of significant pathology in the entire pancreas. - Endosonographic images of the left adrenal gland were unremarkable. - No specimens collected. ERCP: - Choledocholithiasis was found. Complete removal was accomplished by biliary sphincterotomy and balloon extraction. - One plastic pancreatic stent was placed into the ventral pancreatic duct and Indomethacin given to decrease risk of post-ERCP pancreatitis. - One covered metal biliary stent was placed into the common bile duct. Review of Systems Review of Systems: All systems reviewed & are unremarkable except as noted in HPI & below Physical Exam Gastrointestinal (Abdomen): normal bowel sounds, soft, nontender, no hepatosplenomegaly Results & Data ([facility]) Vital Signs (Past 12 Hours) Vital Signs Temp Pulse Pulse Resp BP BP Pulse Ox 09/14/22 07:38 36.8 C 75 18 121/80 95 03/30/22 02:55 36.6 C 62 18 104/69 93 03/29/22 22:40 36.5 C 71 18 112/74 95 03/29/22 22:40 03/29/22 21:25 36.9 C 74 16 118/80 93 O2 Del Method O2 Flow Rate 03/30/22 07:38 Room Air 03/30/22 02:55 Room Air 03/29/22 22:40 Nasal Cannula 2.0 03/29/22 22:40 Nasal Cannula 2 03/29/22 21:25 Nasal Cannula 2.0 Laboratory Results 03/30/22 03/30/22 03/29/22 Range/Units 06:15 06:15 11:20 WBC 4.72 L (4.8-10.8) K/ul RBC 4.16 (3.93-5.22) M/uL Hgb 12.5 (12.0-16.0) g/dl Hct 37.4 (34.1-44.9) % MCV 89.9 (80.0-100.0) fL MCH 30.0 (25.0-34.0) pg MCHC 33.4 (32.0-36.0) g/dL RDW Std Deviation 39.6 (36.4-46.3) fL RDW Coeff of Moira 12.0 (11.5-14.5) % Plt Count 251 (130-400) K/uL MPV 10.1 (9.4-12.3) fL Immature Gran % (Auto) 0.2 % Neut % (Auto) 62.0 % Lymph % (Auto) 25.2 % [place]upe % (Auto) 7.8 % Eos % (Auto) 4.4 % Baso % (Auto) 0.4 % Neut # (Auto) 2.92 (1.4-6.5) K/uL Lymph # (Auto) 1.19 L (1.2-3.4) K/uL [place]upe # (Auto) 0.37 (0.24-0.82) K/uL Eos # (Auto) 0.21 (0-0.50) K/uL Baso # (Auto) 0.02 (0-0.2) K/uL Immature Gran # (Auto) 0.01 (0.00-0.02) K/uL Sodium 138 (136-145) mmol/L Potassium 3.3 L (3.5-5.1) mmol/L Chloride 105 (98-107) mmol/L Carbon Dioxide 26 (21-32) mmol/L Anion Gap 7 (3-11) BUN 5 L (6-23) mg/dl Creatinine 0.46 L (0.6-1.2) mg/dl Est Cr Clr Drug Dosing 175.9 ml/min Est GFR ( Amer) 138.3 ml/min Est GFR (Non-Af Amer) 119.3 ml/min BUN/Creatinine Ratio 10.9 (10-20) Glucose 94 (70-99(Fasting)) mg/dl Calcium 8.2 L (8.5-10.1) mg/dl Total Bilirubin 1.8 H (0.2-1.0) mg/dl Direct Bilirubin 0.4 H (0-0.2) mg/dl AST 153 H (13-39) U/L ALT 421 H (7-52) U/L Alkaline Phosphatase 267 H (34-104) U/L Total Protein 5.6 L (6.0-8.3) gm/dl Albumin 3.2 L (3.4-5.0) gm/dl HCG, Qual Negative (Negative)
[2022-03-30] MEDS: D5W AND 1/2NSS + 20MEQ KCL 20 MEQ/1,000 ML BAG IV SCH (10:29)
[2022-03-30] MEDS ORDERED: POLYETHYLENE (MIRALAX) 17 GM PACK PO STA (10:40)
[2022-03-30] MEDS ORDERED: DOCUSATE SODIUM 100 MG CAP PO ONE (11:00)
[2022-03-30] MEDS: oxyCODONE HCL IR 5 MG TAB (IMMEDIATE RELEASE) PO PRN (12:29)
--- NOTE | 2022-03-30 12:41 | Discharge Summary ---
Date of Service March 30, 2022 Admission HPI Per Admitting Provider 46/F arrives for evaluation of []right upper quadrant abdominal pain. Patient underwent cholecystectomy [address] Cheatham at the surgical center for [facility]. She did not feel very well over the past 2 days but has suddenly developed severe right upper quadrant abdominal pain in the past couple of hours with significant nausea and vomiting. She denies fever or chills. I ( Geraldo Lam MD ) got a call for consult abdominal pain, I reviewed pt's H/P, labs, CT scan with pt, Principal Diagnosis Intra-abdominal fluid collection s/p laparoscopic cholecystectomy elevated total bilirubin and LFTs Choledocholithiasis Discharge Exam Constitutional WD/WN, vitals as above no acute distress and not ill appearing Neck normal visual inspection and trachea midline Respiratory normal respiratory effort; no respiratory distress and no labored breathing Gastrointestinal (Abdomen) Inspection/Auscultation: abdomen normal to inspection, + abdominal surgical incision (covered with steri strips with dry blood no acute bleeding) and + hypoactive bowel sounds; abdomen not distended and + abnormal bowel sounds Percussion/Palpation: + abdomen tender (RUQ on deep palpation) and abdomen soft; no guarding, abdomen not rigid and abdomen not firm Skin no rashes, warm and dry no jaundice Psychiatric Orientation: alert and oriented x 3 Discharge Data Allergies Allergy/AdvReac Type Severity Reaction Status Date / Time sulfamethoxazole [Bactrim] Allergy Intermediate Flushing Verified 03/19/22 20:56 trimethoprim [Bactrim] Allergy Intermediate Flushing Verified 03/19/22 20:56 latex Allergy Mild LATEX Verified 03/19/22 20:56 GLOVES MAKE SKIN BREAK OUT albuterol AdvReac Intermediate hyperventil Verified 03/19/22 20:56 ate iodine AdvReac Intermediate MIGRANES Verified 03/19/22 20:56 Consultations 03/28/22 17:58 ED Decision to Admit Stat 03/28/22 22:27 Consult Gastroenterology Routine Procedures Performed Operation Date: 03/29/22 10:00 Actual Procedures p Endoscopic Ultrasonography Upper - Silvia Nunn MD p Endoscopic Retrograde Cholangiopancreato - Silvia Nunn MD Ordered Studies 03/28/22 12:37 CT abd pelvis IV con only Stat 03/28/22 16:30 MR MRCP Stat 03/29/22 15:30 FL ERCP biliary ductal Routine 03/29/22 15:33 US upper EUS PACS images Routine Hospital Course (1) Right upper quadrant abdominal pain: (2) Choledocholithiasis: (3) Total bilirubin, elevated: (4) Elevated LFTs: Plan Patient was evaluated in the emergency room by Dr. Lam and recommended admission to the hospital for conservative management and further evaluation of the intra-abdominal fluid collection and elevated LFTs with MRCP and GI consultation. MRCP showed dilated common bile duct at 10 mm with associated fat stranding however no evidence of common bile duct stone. Patient was started on IV Zosyn, IV fluids, pain management, n.p.o. She was taken to the OR for an ERCP on 03/29/2022 by the GI service and was found to have choledocholithiasis. A stent was placed in the common bile duct as well as a pancreatic stent. Patient's diet was advanced as tolerated. Her labs showed improvement of the total bilirubin and LFTs on day of discharge. Throughout her hospital stay she was afebrile and no leukocytosis. Her pain improved after ERCP. Patient was discharged home on hospital day #2 in stable condition. Close follow-up with Dr. Cheatham scheduled on 04/04/2022 she will have repeat labs prior to her postop follow-up. Total Time Total Time Spent Total Time Spent (In Minutes): 45 minutes Total Time Includes: Examination of the Patient, Discharge Planning, Medication Reconciliation and Communication With Other Providers Discharge Plan Discharge Items Patient Disposition: Home - Self-Care Reason For Visit: VOMITING, LOWER ABDOMINAL PAIN Discharge Diagnosis: Common bile duct stone Intra-abdominal fluid collection Activity: Per Instructions section Non-emergency contact: Primary Care Provider and Surgeon Call non-emergency contact if: you have any medication questions, your pain is not controlled, your pain is worsening, you have a fever, your temperature is above 101, your wound has increased redness, your wound has increased drainage and your wound pain has increased Follow-up/Referrals: Layne Le MD [Primary Care Provider] - Diet: Low Fat Ambulatory Orders: Complete Blood Count with Diff (Timed) Timeframe: 20220404 Location: Determined by Patient Ordered By: Karissa Manuel Comprehensive Metabolic Panel (Routine) Timeframe: 20220404 Location: Determined by Patient Ordered By: Karissa Schwartz Attending Provider Instructions: Post-Surgical ~Discharge Instructions Activity Recommendations: - lifting limitation: (20 pounds for 4 weeks), - exercise/sex/sports limit: (nonstrenuous for 2 weeks), - driving or machine use limit: (none for 1 week or until pain free and no longer taking narcotic pain medication), - Shower/bathe limit: (may shower beginning tonight) Diet: - Would recommend low fat diet for the next 1-2 weeks and then slowly advance to regular diet as tolerated. SPECIAL CARE INSTRUCTIONS: - May shower tonight. Let water run over area and pat dry. - Leave steri strips on for 2 more days and then remove. If they fall off before that is okay. - Call the surgeon's office with any questions or concerns - - (ex. temperature higher than 101 degrees F, excessive bleeding or pain). MEDICATIONS: - Resume previous medications unless instructed otherwise by your surgeon. - May take extra strength Tylenol as needed for mild to moderate pain. -500 mg every 6 hours as needed. - Avoid NSAIDs (Ibuprofen, Advil, Aleve, Motrin) for 7 days given the ERCP procedure and stent placement - Take Percocet as needed for moderate to severe pain as already prescribed by Dr. Cheatham from your initial surgery - Recommend taking daily to twice a day stool softener (Colace). May take daily Miralax if still having issues with constipation. Stop if beginning to have loose stools. Drink plenty of water daily. FOLLOW UP VISIT: - Keep your postop appointment as scheduled on 04/04/[address] Cheatham. Office number - You will need follow-up labs on Monday morning prior to your postop visit with Dr. Cheatham. Please obtain labs at [facility] as ordered. You will need the common bile duct stent removed in 4-6 weeks. You should be contacted by [facility] to get this scheduled. Pending Studies at Discharge: No Stand-Alone Forms: My [employer], Smoking Cessation Medications and DC Order Prescriptions: Continued fluticasone propion-salmeterol 250-50 mcg/dose blister with device 1 inh INHALATION DIRECTED PRN (Reason: Wheezing) ferrous sulfate [iron] 325 mg (65 mg iron) Tablet 325 mg PO HS clobetasol 0.05 % Ointment 1 applic TOPICAL DIRECTED PRN (Reason: FLARE UPS) calcium carbonate-vitamin D3 [Calcium 600 + D(3)] 600 mg-10 mcg (400 unit) Tablet 1 tab PO HS ondansetron HCl 4 mg tablet 4 mg PO Q8H PRN (Reason: nausea and vomiting) Qty: 15 0RF oxycodone 5 mg tablet 5 mg PO Q6H PRN (Reason: pain) Qty: 15 0RF sertraline 100 mg tablet 100 mg PO HS Discharge Orders: Discharge Order (Routine); Ordered 03/30/22 Ordered By: Karissa Francisco/Other Patient Handouts: Low-Fat Cooking Tips, Adding Flavor to Low-Fat Meals Admission Data Admit Date/Time: 03/28/22 16:25 Attending Provider: Geraldo Lam Admit Provider: Geraldo Lam Primary Care Provider: Layne Le Other Providers: Geraldo Lam ; Julian Goins ; Josesito Valencia ; Roselyn Chow ; Karissa Tovar ; Hilda Hernandez ; Ninfa Kimble ; Walter Bennett ; Boby Marsh ; Lisbeth Blandon ; Vega Quispe ; Deacon Wolf ; Bernie Maloney ; Jay Jay Harp ; Joshua Rodgers ; Jose Nelson ; Vinita Pena ; Barb Rosenbaum ; Arminda Parish ; Margy Richmond ; Silvia Nunn ; Cornelio Curtis ; Aramis Muir ; Taye Stewart ; Kanwal Lee ; Georgie Coffey Jr Other Interventions: Discharge Summary Assessment (RN) Last Done: 03/30/22 11:50
[2022-03-30] MEDS ORDERED: bisacodyL 10 MG SUPP PR STA (15:41)
[2022-03-30] MEDS ORDERED: ACETAMINOPHEN 325 MG TAB PO PRN (15:46)
[2022-03-30] MEDS ORDERED: GLUCAGON FOR INJ 1 MG VIAL ONE (17:13)
[2022-03-30] MEDS ORDERED: bisacodyL 10 MG SUPP PR ONE (18:44)
[2022-03-30] MEDS: SERTRALINE HCL 100 MG TABLET PO SCH (19:44)
[2022-03-30] MEDS: CALCIUM 600MG + VIT D 400 IU TAB PO SCH (19:44)
[2022-03-30] MEDS ORDERED: DOCUSATE SODIUM 100 MG CAP PO SCH (21:00)
--- NOTE | 2022-04-09 10:13 | Coding Query ---
To promote full compliance with coding requirements relating to patient care, provider participation is requested in all cases of color worker uncertainty. Please assist us with the question(s) below: Coding Question(s): The diagnosis(es) below was documented in the early chart, then subsequently fell off all further documentation. Please indicate if it is still a possible diagnosis or ruled out. Physician's Response(s): POST SURGICAL COMPLICATION - (documented on the ER H&P) ( ) Diagnosed and POA ( ) Diagnosed and not POA ( ) Ruled out ( ) Other (please specify) POSSIBLE ABSCESS - (documented on the ER H&P, GI Consultation, and Surgery Progress Note on 03/29) ( ) Diagnosed and POA ( ) Diagnosed and not POA ( ) Ruled out ( ) Other (please specify) POSSIBLE BILE LEAK - (documented on the ER, GI Consultation, and Surgery Progress Note on 03/29) ( ) Diagnosed and POA ( ) Diagnosed and not POA ( ) Ruled out (x ) Other (please specify) CBD stone MTDD
== END 2022-03-30 21:25 | disposition home or self-care (01) | DRG 445 ==
LOC: ED 11:02 → 3W 16:25